=== PATIENT | female | born 1975 | race Caucasian/White ===

== ENCOUNTER 2017-07-08 13:08 | Observation (INO) ==
[2017-07-08 13:38] LABS: Hematocrit 47.6 % (37.0-47.0); Hemoglobin 15.8 g/dL (12.2-16.2); Mean Corpuscular HGB Conc 33.2 g/dL (31.8-35.4); Mean Corpuscular Hemoglobin 29.2 pg (27.0-31.2); Mean Corpuscular Volume 87.9 fl (81-99); Mean Platelet Volume 8.1 fl (7.4-10.4); Neutrophils % 78.5 % (37.0-80.0); Platelet Count 293 K/mm3 (142-424); Red Blood Count 5.41 M/mm3 (4.20-5.40); Red Cell Distribution Width 12.9 % (11.5-17.5); White Blood Count 20.7 K/mm3 (4.8-10.8)
[2017-07-08 13:39] LABS: Basophils % 0.2 % (0.1-2.0); Eosinophils # 0.1 K/mm3 (0.0-0.4); Eosinophils % 0.7 % (0.1-12.0); Lymphocytes # 3.2 K/mm3 (0.7-4.5); Lymphocytes % 15.5 K/mm3 (10-50); Monocytes # 1.1 K/mm3 (0.1-1.0); Monocytes % 5.1 % (1.7-9.3); Neutrophils # 16.2 K/mm3 (1.8-7.8)
[2017-07-08 13:44] LABS: Albumin Level 3.4 gm/dL (3.4-5.0); Albumin/Globulin Ratio 0.8 (1.1-1.8); Anion Gap 14.2 mEq/L (5-15); Bilirubin,Total 0.3 mg/dL (0.2-1.0); Calcium 9.5 mg/dL (8.5-10.1); Globulin 4.2 gm/dl (1.3-3.2); Potassium 3.2 mmoL/L (3.5-5.1); Total Protein,Serum 7.6 gm/dL (6.4-8.2)
[2017-07-08 13:54] LABS: Eosinophils % 1 % (0-3); Lymphocytes % 16 % (10-50); Monocytes % 2 % (2-9); Neutrophils % 76 % (42-76); RBC Morphology Normal; Total Cells Counted 100
--- NOTE | 2017-07-08 14:03 | Emergency Department Note ---
ED Disposition Clinical Impression: Ureteric colic, Leucocytosis Disposition: Still a Patient Condition on Discharge: Fair Referrals: Gregory Wei MD [Primary Care Provider] - - Critical Care Critical Care Time: No Attestation: On 07/08/17, the high probability of a clinically significant, sudden or life threatening deterioration of the following system(s) required my full and direct attention, intervention and personal management. The time I documented below is in addition to time spent performing reported procedures but includes the following listed in this critical care notation. Medical Decision Making - Madhu Inquiry Pt receiving controlled substance: No Madhu was queried for this patient: No Vital Signs: 07/08/17 13:14 07/08/17 14:09 Temperature 98.0 F 98.1 F Temperature Source Oral Oral Pulse Rate [Right Brachial] 88 77 Respiratory Rate 20 22 Blood Pressure [Right Arm] 157/99 155/97 Blood Pressure Mean [Right Arm] 118 116 Blood Pressure Source [Right Arm] Automatic Cuff Automatic Cuff Blood Pressure Position [Right Arm] Sitting Sitting 02 Sat by Pulse Oximetry 100 100 Oxygen Delivery Method Room Air Room Air - Lab Data Lab Results 07/08/17 13:10: WBC 20.7 H* D, RBC 5.41 H, Hgb 15.8, Hct 47.6 H, MCV 87.9, MCH 29.2, MCHC 33.2, RDW 12.9, Plt Count 293, MPV 8.1, Neut % (Auto) 78.5, Lymph % ( Auto) 15.5, [place] % (Auto) 5.1, Eos % (Auto) 0.7, Baso % (Auto) 0.2, Neut # (Auto ) 16.2 H, Lymph # (Auto) 3.2, [place] # (Auto) 1.1 H, Eos # (Auto) 0.1, Baso # ( Auto) 0.0, Total Counted 100, Neutrophils % (Manual) 76, Lymphocytes % (Manual) 16, Atypical Lymphs % 5.0, Monocytes % (Manual) 2, Eosinophils % (Manual) 1, Platelet Estimate Normal, RBC Morphology Normal 07/08/17 13:10: Sodium 142, Potassium 3.2 L, Chloride 105, Carbon Dioxide 26, Anion Gap 14.2, BUN 9, Creatinine 0.85 D, Estimated Creat Clear 104, Estimated GFR 73, Est GFR ( Amer) 89, Glucose 101, Calcium 9.5, Total Bilirubin 0.3 , AST 13 L, ALT 14, Alkaline Phosphatase 101, Total Protein 7.6, Albumin 3.4, Globulin 4.2 H, Albumin/Globulin Ratio 0.8 L 07/08/17 14:28: Lactic Acid 1.5 Result diagrams: 07/08/17 13:10 07/08/17 13:10 Orders (Tests/Meds): ED MEDICATIONS Generic Name Dose Route Start Last Admin Trade Name Freq PRN Reason Stop Dose Admin Ceftriaxone Sodium 1 gm/ 50 mls @ 100 mls/hr 07/08/17 14:30 07/08/17 14:20 Sodium Chloride IV 07/22/17 14:29 100 mls/hr Q24H HUMBERTO Administration Protocol Sodium Chloride 1,000 mls @ 999 mls/hr 07/08/17 15:30 07/08/17 15:23 Sod Chlor 0.9% 1000ml Bag IV 07/08/17 16:30 999 mls/hr .Q1H1M HUMBERTO Administration Tamsulosin HCl 0.4 mg 07/08/17 21:00 07/08/17 15:24 Flomax 0.4mg Capsule PO 08/07/17 20:59 0.4 mg HS HUMBERTO Administration Discontinued Medications Generic Name Dose Route Start Last Admin Trade Name Freq PRN Reason Stop Dose Admin Morphine Sulfate 4 mg 07/08/17 14:06 07/08/17 14:10 Morphine 4mg/Ml Syringe IV 07/08/17 14:07 4 mg ONCE ONE Administration Ondansetron HCl 4 mg 07/08/17 14:05 07/08/17 14:10 Zofran 4mg/2ml Vial IV 07/08/17 14:06 4 mg ONCE ONE Administration ORDERS Category Date Time Status Blood Culture Stat Micro 07/08/17 14:28 Received Medical Decision Narrative: After 2 bags of IV fluids and a second dose of morphine the patient underwent recurrent pain with nausea. I spoke with Dr. Zarate was pesticide control inspector for unassigned agreed to admit the patient for pain control. General Adult HPI - General Chief complaint: PAIN Stated complaint: Sugery 07/07/17 Kidney Stones Time Seen by Provider: 07/08/17 13:20 Mode of Arrival: Ambulatory Limitations: No Limitations Description of Symptoms (Recalled from ER Triage Doc. by RN): Patient had a lithotripsy yesterday [address] Freire's office. Has been increased pain and vomiting since 0200. Patient states she was urinating OK until 1000 this AM and hasn't urinated since then, but also wasn't able to keep fluids down since. - History of Present Illness HPI narrative: 41 years old white female who was diagnosed with a left ureteric stone 3 days ago she was seen by the urologist yesterday and underwent lithotripsy. At 2 PM 2 AM she developed worse pain and repeated vomiting she came to the ED. Onset (ago): hour(s) (10 hours.) Severity: severe Quality: sharp Consistency: constant Relieving factors: none Exacerbating factors: none Associated symptoms: denies other symptoms - Related Data Previous Rx's Medication Instructions Recorded Hydrocod/Acet 5/325 mg [[place] 1 tab PO Q6HP PRN #10 tab 07/05/17 5/325mg tablet] Allergies Allergy/AdvReac Type Severity Reaction Status Date / Time erythromycin base AdvReac Mild NA-NAUSEA/V Verified 07/05/17 19:13 OMITING [facility] History I have reviewed the patient's past medical history: Yes Medical History: Reports:: Hyperlipidemia Other Surgeries: Yes: Hernia Repair, Tubal Ligation Amputation: No Fractures: No Comment: oral surgery-wisdom teeth - Social History Smoking Status: Current every day smoker Tobacco Type: cigarettes # Packs/Day (cigarettes): 1 Alcohol Intake: current Alcohol Intake Frequency:: holidays/special occasions only Substance Use Type: denies use - Psychiatric History Expresses thoughts of harming self/others: None Suicide Plan Description: No Plan Family Hx:: No significant family history ROS Obtained: Yes All systems reviewed & no additional complaints Physical Exam - General General appearance: alert, in no apparent distress - Head Head exam: atraumatic, normocephalic, normal inspection - Eye Eye exam: Present: normal appearance, PERRL, EOMI - ENT ENT exam: Present: normal exam, normal oropharynx, mucous membranes moist, TM's normal bilaterally, normal external ear exam - Neck Neck exam: Present: normal inspection, full ROM, trachea midline. Absent: meningismus, lymphadenopathy - Chest Chest inspection: Present: normal inspection, symmetric chest wall rise. Absent : tenderness - Respiratory Respiratory exam: Present: normal lung sounds bilaterally. Absent: respiratory distress - Cardiovascular Cardiovascular exam: Present: regular rate, normal rhythm. Absent: JVD - Abdominal Exam Abdominal exam: Present: soft, normal bowel sounds. Absent: distention, tenderness, guarding - Extremities Exam Extremities exam: Present: normal inspection, full ROM, normal capillary refill. Absent: calf tenderness - Back Exam Back exam: Present: normal inspection, tenderness, CVA tenderness (L) - Neurological Exam Neurological exam: Present: alert, oriented X3, CN II-XII intact, motor sensory deficit, reflexes normal - Psychiatric Psychiatric exam: Present: normal affect, normal mood - Skin Skin exam: Present: warm, dry, intact, normal color - Lymphatic Lymphatic Findings: no adenopathy
[2017-07-09 07:11] LABS: Basophils % 0.4 % (0.1-2.0); Eosinophils # 0.2 K/mm3 (0.0-0.4); Hematocrit 40.2 % (37.0-47.0); Lymphocytes # 3.5 K/mm3 (0.7-4.5); Mean Corpuscular HGB Conc 32.2 g/dL (31.8-35.4); Mean Platelet Volume 8.9 fl (7.4-10.4); Monocytes # 0.5 K/mm3 (0.1-1.0); Monocytes % 5.4 % (1.7-9.3); Neutrophils # 5.4 K/mm3 (1.8-7.8); Neutrophils % 56.2 % (37.0-80.0); Platelet Count 226 K/mm3 (142-424); Red Blood Count 4.47 M/mm3 (4.20-5.40); Red Cell Distribution Width 13.2 % (11.5-17.5); White Blood Count 9.7 K/mm3 (4.8-10.8)
[2017-07-09 07:17] LABS: Anion Gap 9.2 mEq/L (5-15); Potassium 3.2 mmoL/L (3.5-5.1)
--- NOTE | 2017-07-09 08:26 | H&P/Discharge Summary ---
General - General Admission date: 07/08/17 Discharge date: 07/09/17 *Admission Date: 07/09/17 *Chief complaint: Left flank pain *History of present illness: 41-year-old female diagnosed with a 6 mm left sided kidney stone last week and underwent lithotripsy on Monday presented to the emergency department with left flank pain. Patient reports lithotripsy Monday afternoon. 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 She had pain medication at home to take but could not keep it down. Once her pain became unbearable she presented to the emergency department. Patient was medicated in the emergency department to control her pain as well as nausea. Repeat CT scan was performed which showed a 2 mm stone at the left UVJ and patient was admitted on IV fluids , morphine, Toradol, antiemetics. [facility] History I have reviewed the patient's past medical history: Yes Medical History: Reports:: Hyperlipidemia Denies:: Cancer, Diabetes Mellitus Type 1, Diabetes Mellitus Type 2, MRSA Other Surgeries: Yes: Hernia Repair, Tubal Ligation Amputation: No Fractures: No - *Social History Educational Level: Attended College Smoking Status: Current every day smoker Tobacco Type: cigarettes # Packs/Day (cigarettes): 1 Alcohol Intake: former Alcohol Intake Frequency:: holidays/special occasions only Substance Use Type: denies use Occupational Status: employed Housing: house Household Members: children - Psychiatric History Expresses thoughts of harming self/others: None Suicide Plan Description: No Plan *Family Hx:: No significant family history Review of Systems - Review of Systems Review of systems:: pertinent systems reviewed and negative unless documented below - Constitutional Denies body ache(s), Denies chills, Denies fever(s) Exam Vital signs and Labs for Last 24 Hours: Temp Pulse Resp BP Pulse Ox 97.9 F 75 16 151/98 99 07/09/17 08:16 07/09/17 08:16 07/09/17 08:16 07/09/17 08:16 07/09/17 08:16 Laboratory Results - last 24 hr 07/09/17 06:03: WBC 9.7 D, RBC 4.47, Hgb 13.0 D, Hct 40.2, MCV 90.0, MCH 29.0 , MCHC 32.2, RDW 13.2, Plt Count 226, MPV 8.9, Neut % (Auto) 56.2, Lymph % (Auto ) 36.0, [place] % (Auto) 5.4, Eos % (Auto) 2.0, Baso % (Auto) 0.4, Neut # (Auto) 5.4, Lymph # (Auto) 3.5, [place] # (Auto) 0.5, Eos # (Auto) 0.2, Baso # (Auto) 0.0 07/09/17 06:03: Sodium 143, Potassium 3.2 L, Chloride 108 H, Carbon Dioxide 29, Anion Gap 9.2, BUN 7, Creatinine 0.63 D, Estimated Creat Clear 147, Estimated GFR 104, Est GFR ( Amer) 125 D, Glucose 102 I & O for Last 24 hours: Intake & Output 07/06/17 07/07/17 07/08/17 07/09/17 11:59 11:59 11:59 11:59 Intake Total 1391 / 1391 Output Total 1400 / 1400 Balance -9 / -9 Weight 168 lb Narrative: This morning patient is awake and alert and sitting up in bed. She does not appear to be in any discomfort. Oropharynx is moist. Neck is without lymphadenopathy. Lungs are clear. Heart has a regular rate and rhythm. Back has mild discomfort with palpation but no true CVA tenderness. No palpable flank tenderness. Active range of motion in all extremities. Hospital Course Hospital Course: Patient was admitted. She had no further vomiting. She was medicated with intravenous pain medications. The following morning she was transitioned to oral pain medications and antiemetics. Patient was given scheduled pain medication to keep pain under control. Diet was advanced. When she tolerated her diet she was discharged home with additional prescription for oral pain medication and antiemetics. She will follow-up with her urologist later this week Results Labs on day of discharge: Labs from last 24 hours 07/09/17 07/09/17 06:03 06:03 WBC 9.7 D RBC 4.47 Hgb 13.0 D Hct 40.2 MCV 90.0 MCH 29.0 MCHC 32.2 RDW 13.2 Plt Count 226 MPV 8.9 Neut % (Auto) 56.2 Lymph % (Auto) 36.0 [place] % (Auto) 5.4 Eos % (Auto) 2.0 Baso % (Auto) 0.4 Neut # (Auto) 5.4 Lymph # (Auto) 3.5 [place] # (Auto) 0.5 Eos # (Auto) 0.2 Baso # (Auto) 0.0 Sodium 143 Potassium 3.2 L Chloride 108 H Carbon Dioxide 29 Anion Gap 9.2 BUN 7 Creatinine 0.63 D Estimated Creat Clear 147 Estimated GFR 104 Est GFR ( Amer) 125 D Glucose 102 DS: Diagnosis - Discharge Diagnosis (1) Ureteric colic Status: Acute Disposition Disposition: Home, Self-Care
--- NOTE | 2017-07-09 10:05 | Pharmacy Consult Notes ---
[facility] Pharmacy VTE Monitoring - Patient Demographics Admission date: 07/08/17 Report Date: 07/09/17 Time: 10:05 Allergies/Adverse Reactions: Patient Allergies erythromycin base Adverse Reaction (Mild, Verified 07/05/17 19:13) NA-NAUSEA/VOMITING Height: 1.6 m Weight: 80 kg Patient Problems: Current Active Problems Ureteric colic (Acute) Leucocytosis (Acute) - VTE Risk Labs: VTE Related Lab Results Hgb 13.0 g/dL (12.2-16.2) D 07/09/17 06:03 Hct 40.2 % (37.0-47.0) 07/09/17 06:03 Plt Count 226 K/mm3 (142-424) 07/09/17 06:03 BUN 7 mg/dL (7-18) 07/09/17 06:03 Creatinine 0.63 mg/dL (0.55-1.02) D 07/09/17 06:03 Estimated Creat Clear 147 mL/min (0-300) 07/09/17 06:03 Was VTE Risk Assessment Performed: Yes VTE Score: 2 VTE Risk Level: Very Low Risk - Prophylaxis VTE Prophylaxis Ordered?: Yes Types of VTE Prophylaxis: TEDS Knee High Location of Applied Device: Bilateral Lower Extremeties - VTE Diagnosis Confirmed Treatment or plan recommended: Continue Current Treatment
== END 2017-07-09 14:59 | disposition home or self-care (01) ==
LOC: 2ND 13:08 → ER 13:08 → 2ND 17:12
PROVIDERS: ADMIT Family Medicine; ATTEND Family Medicine

== ENCOUNTER → 2017-07-13 13:35 | Outpatient (CLI) | payer BC, SELFPAY ==
--- NOTE | 2017-07-13 13:42 | XR_ITS ---
XR KUB HISTORY: ITS.REASON: LT URETERAL STONE ORDERING PHYSICIAN: Judson Freire MD PATIENT AGE: 41 years COMPARISON: FINDINGS: The bowel gas pattern is unremarkable. No acute bony anomalies evident. Vein calcifications are present in the lower pelvis. The stone noted on the CT scan was very small and could be represented by one of these calcifications on the left. They could also be due to small phlebolith. Please correlate with patient's symptoms. A 3 mm stone is noted along the lower pole the right kidney. Abdominal wall tacks are present IMPRESSION: 1. Right nephrolithiasis. 2. Faint pelvic calcifications which are nonspecific. Cannot exclude a tiny distal ureteral calculus on the left
== END ==
PROVIDERS: Visit Provider Urology
DX: N20.0 Calculus of kidney (principal)
CPT/HCPCS: 74018

== ENCOUNTER → 2018-12-06 09:36 | Outpatient (CLI) | payer BC, SELFPAY ==
[2018-12-06 11:29] LABS: Thyroid Stimulating Hormone 3.55 uIU/ml (0.358-3.740)
== END ==
PROVIDERS: Visit Provider Internal Medicine Adolescent Medicine
DX: E03.9 Hypothyroidism, unspecified (principal)
CPT/HCPCS: 36415; 84443

== ENCOUNTER → 2019-12-05 09:47 | Outpatient (CLI) | payer BC, SELFPAY ==
--- NOTE | 2019-12-05 09:52 | MM_ITS ---
PROCEDURE: MM DIG SCREENING MAMM BI W/CAD Digital Breast Tomosynthesis Included CLINICAL INDICATION: SCREENING There is a history of breast cancer patient's maternal great grandmother and maternal grandmother and maternal aunt all diagnosed after menopause. COMPARISON: MG DMSB DIG MAMM-SCREEN SOFIA from 12/22/2014 MG DMDXUAVL DIG MAMM-DX UNI ADD VIEWS-LT from 01/01/2015 TECHNIQUE: Standard CC and MLO images and 3D Tomosynthesis was obtained. R2 CAD reviewed. FINDINGS: Moderate scattered fibroglandular densities are seen the central portions of both breasts. There is a benign-appearing calcification left breast. There are normal appearing nodes in both axilla. There is no suspicious lesion and no suspicious microcalcifications. IMPRESSION: Fibrofatty parenchyma with no suspicious lesions seen BI-RAD Category: 2 Benign Finding(s) FOLLOW-UP: 1YR 1 Year Follow-up (A letter has been sent to the patient regarding results of the study.) Dictated by: Dr. Chon Renteria MD 12/08/2019 13:23 Dr. Chon Renteria MD in [place] 12/08/2019 13:23
[2019-12-05 10:42] LABS: Basophils # 0.1 K/mm3 (0-0.2); Basophils % 0.7 % (0.1-2.0); Eosinophils # 0.2 K/mm3 (0.0-0.4); Eosinophils % 1.7 % (0.1-12.0); Hematocrit 47.4 % (37.0-47.0); Hemoglobin 16.4 g/dL (12.2-16.2); Lymphocytes # 3.1 K/mm3 (0.7-4.5); Lymphocytes % 30.2 % (10-50); Mean Corpuscular HGB Conc 34.6 g/dL (31.8-35.4); Mean Corpuscular Hemoglobin 30.6 pg (27.0-31.2); Mean Corpuscular Volume 88.5 fl (81-99); Mean Platelet Volume 7.9 fl (7.4-10.4); Monocytes # 0.3 K/mm3 (0.1-1.0); Monocytes % 3.2 % (1.7-9.3); Neutrophils # 6.6 K/mm3 (1.8-7.8); Neutrophils % 64.2 % (37.0-80.0); Platelet Count 282 K/mm3 (142-424); Red Blood Count 5.35 M/mm3 (4.20-5.40); Red Cell Distribution Width 13.6 % (11.5-17.5); White Blood Count 10.3 K/mm3 (4.8-10.8)
[2019-12-05 11:03] LABS: Chloride 105 mmol/L (98-107); Potassium 3.2 mmoL/L (3.5-5.1); Sodium 142 mmol/L (136-145)
[2019-12-05 11:06] LABS: Alanine Aminotransferase 15 U/L (12-78); Albumin Level 3.8 g/dl (3.5-5.0); Albumin/Globulin Ratio 1.2 (1.1-1.8); Alkaline Phosphatase 92 U/L (38-126); Anion Gap 9.2 mEq/L (5-15); Aspartate Amino Transferase 21 U/L (14-36); Bilirubin,Total 0.4 mg/dl (0.2-1.3); Blood Urea Nitrogen 11 mg/dl (7-17); Carbon Dioxide 31 mmol/L (22.0-30.0); Cholesterol 244 mg/dl (140-200); Estimated Glomerular Filt Rate 108 ml/min (>60); GFR (African American) 131 ML/MIN (>60); Globulin 3.2 g/dL (1.3-3.2); Triglycerides 242 mg/dl (30-150); VLDL Cholesterol 48 mg/dL (0-40)
[2019-12-05 11:07] LABS: Calcium 9.2 mg/dl (8.4-10.2); Chol/HDL Ratio 5.4 (1-3.5); Glucose 113 mg/dl (74-100); HDL Cholesterol 45 mg/dl (40-60)
[2019-12-05 11:17] LABS: Direct LDL Cholesterol 147.17 mg/dL (100-129)
[2019-12-05 11:38] LABS: Thyroid Stimulating Hormone 4.19 uIU/mL (0.465-4.68)
== END ==
PROVIDERS: PCP Internal Medicine Adolescent Medicine; Visit Provider Nurse Practitioner Family
DX: Z12.31 Encounter for screening mammogram for malignant neoplasm of breast (principal); I10 Essential (primary) hypertension; E78.00 Pure hypercholesterolemia, unspecified; E03.9 Hypothyroidism, unspecified; K11.20 Sialoadenitis, unspecified
CPT/HCPCS: 36415; 77063; 77067; 80053; 80061; 84443; 85025

== ENCOUNTER → 2020-01-13 11:26 | Outpatient (CLI) | payer BC, SELFPAY ==
--- NOTE | 2020-01-13 11:31 | XR_ITS ---
PROCEDURE: XR KNEE RT 3V CLINICAL INDICATION: ACUTE PAIN OF RT KNEE COMPARISON: No exams were available for comparison FINDINGS: No fracture or dislocation. No lytic or blastic change. There is normal mineralization. The joint spaces are well-preserved. No significant degenerative/arthritic changes. No erosive changes evident. Other findings:None. IMPRESSION: No acute findings. Dictated by: Dr. Chon Renteria MD 01/13/2020 12:13 Dr. Chon Renteria MD in [place] 01/13/2020 12:13
== END ==
PROVIDERS: PCP Nurse Practitioner Family; Visit Provider Nurse Practitioner Family
DX: M25.561 Pain in right knee (principal)
CPT/HCPCS: 73562

== ENCOUNTER 2020-04-13 14:04 | Emergency (ER) | payer BC, SELFPAY ==
[2020-04-13 14:15] VITALS: BP 152/97; PULSE 116; RESP 22; TEMP 36.9; O2SAT 96; BMI 32.5
--- NOTE | 2020-04-13 14:33 | HMH.EDUTC ---
[facility] [place] Disposition Clinical Impression: Viral syndrome Disposition: Home, Self-Care Condition on Discharge: Good Instructions: Sore Throat, DI for COVID-19 (Suspected or Confirmed ), Coronavirus Disease 2019, DI for Fever (Symptom) -- Adult Additional Instructions: *Monitor Temp, Over the counter Motrin or Tylenol as directed/as needed Tylenol every 4 hours and Motrin every 6 hours (as long as your family doctor has told you that you can take it) for fever or pain. and straight to ER if unable to lower temp less than 101.0 after medication given *Warm salt water gargles may help to soothe the throat *Throat Lozenges *Warm fluids like tea with honey may help to soothe the throat *Sleep elevated *Humidifier/Vaporizer Your throat swab was sent for culture. Those results are typically sent to your primary care. Be sure to follow up in 2-3 days with your family doctor/primary care physician if no improvement so they can review those result and treat if necessary. If you don?t have a primary care doctor, I recommend you get one but in the mean time, you will have to return to a walk in clinic Follow up IMMEDIATELY for new or worsening symptoms or no Noticeable improvement over the next 48-72 hours. 911 for difficulty breathing or swallowing You were tested for today for COVID19 your test result should be back in the next 24-48 hours, you may call to the [facility] to see if your test results are back in the next 48 hours [phone] [facility] hours are 9am-9pm You was given a handout with instructions for Self Quarantine and Self isolation for while you wait on test results and what to do if they are positive If you are positive the Health Dept will be contacting you also Referrals: Mckinley Guardado MD [Primary Care Provider] - As needed Forms: Work/School Release Time of Disposition: 14:36 Medical Decision Making - Madhu Inquiry Pt receiving controlled substance: No Madhu was queried for this patient: No Vital Signs: 04/13/20 14:15 Temperature 98.4 F Temperature Source Oral Pulse Rate [Right Brachial] 116 H Respiratory Rate 22 Blood Pressure [Right Arm] 152/97 H Blood Pressure Mean [Right Arm] 115 Blood Pressure Source [Right Arm] Automatic Cuff Blood Pressure Position [Right Arm] Sitting 02 Sat by Pulse Oximetry 96 Oxygen Delivery Method Room Air - Lab Data Lab results reviewed: Yes: I reviewed the patient's lab results. Orders (Tests/Meds): ORDERS Category Date Time Status Covid-19 Nasal PCR Sendout P&C Stat Lab 04/13/20 14:32 Ordered [facility] [place] HPI - General Stated complaint: covid test Time Seen by Provider: 04/13/20 14:33 Mode of Arrival: Ambulatory Source of Information: Patient Limitations: No Limitations Description of Symptoms (Recalled from Triage Doc. by RN): PATEINT C/O HEADACHE, CONGESTION, FEVER, SORE THROAT, AND BODY ACHES SINCE THIS MORNING. NEEDS COVID TEST FOR WORK HEENT Symptoms (Recalled from RN notes): Yes Resp Symptoms (Recalled from RN notes): No Skin Symptoms (Recalled from RN notes): No MS Symptoms (Recalled from RN notes): No Functional Status (Recalled from RN notes): WNL - History of Present Illness Provider Complaint: Patient state that she woke up this morning not feeling well States that she was having sore throat, body aches, chills and fever States that her work sent her home and told her that she has to be tested for COVID before she can return so she came in - Related Data Home Medications Medication Instructions Recorded Confirmed amlodipine 5 mg tablet 5 mg PO DAILY 01/07/19 01/07/19 hydrochlorothiazide 25 mg tablet 25 mg PO DAILY 01/07/19 01/07/19 levothyroxine 75 mcg tablet 75 mcg PO DAILY 01/07/19 01/07/19 Previous Rx's Medication Instructions Recorded Amoxicillin [Amoxicillin 500mg 500 mg PO TID #30 cap 06/12/19 Cap] Fluticasone Propionate [Flonase 1 spr NS DAILY #1 bottle 06/12/19 50mcg nasal spray 16gm] Allergies Allergy/AdvReac Type Se
[2020-04-13 14:35] LABS: UTC Strep Screen (Rapid) Negative (Negative)
[2020-04-13 14:36] LABS: UTC Influenza A Antigen Negative (Negative); UTC Influenza B Antigen Negative (Negative)
[2020-04-13 14:37] VITALS: BP 152/97; PULSE 116; RESP 22; TEMP 36.9; O2SAT 96
[2020-04-15 08:37] LABS: Covid-19 Nasal PCR Sendout P&C NEGATIVE
== END 2020-04-13 14:40 | disposition home or self-care (01) ==
PROVIDERS: Emergency Provider Nurse Practitioner; PCP Internal Medicine Adolescent Medicine
DX: Z20.822 Contact with and (suspected) exposure to COVID-19 (principal); B34.9 Viral infection, unspecified; I10 Essential (primary) hypertension; E03.9 Hypothyroidism, unspecified; E75.5 Other lipid storage disorders; F17.210 Nicotine dependence, cigarettes, uncomplicated
CPT/HCPCS: 87804; 87880; 99202; G0463; U0004

== ENCOUNTER → 2020-05-28 08:19 | Outpatient (CLI) | payer BC, SELFPAY ==
[2020-05-28 09:24] LABS: Basophils # 0.1 K/mm3 (0-0.2); Basophils % 0.6 % (0.1-2.0); Eosinophils # 0.1 K/mm3 (0.0-0.4); Eosinophils % 1.4 % (0.1-12.0); Hematocrit 46.6 % (37.0-47.0); Hemoglobin 15.2 g/dL (12.2-16.2); Lymphocytes # 3.5 K/mm3 (0.7-4.5); Lymphocytes % 35.4 % (10-50); Mean Corpuscular HGB Conc 32.6 g/dL (31.8-35.4); Mean Corpuscular Hemoglobin 28.7 pg (27.0-31.2); Mean Platelet Volume 7.7 fl (7.4-10.4); Monocytes # 0.4 K/mm3 (0.1-1.0); Neutrophils # 5.8 K/mm3 (1.8-7.8); Neutrophils % 58.6 % (37.0-80.0); Platelet Count 287 K/mm3 (142-424); Red Blood Count 5.29 M/mm3 (4.20-5.40); Red Cell Distribution Width 14.1 % (11.5-17.5); White Blood Count 9.9 K/mm3 (4.8-10.8)
[2020-05-28 10:09] LABS: Alanine Aminotransferase 12 U/L (12-78); Albumin Level 4.1 g/dl (3.5-5.0); Albumin/Globulin Ratio 1.2 (1.1-1.8); Alkaline Phosphatase 91 U/L (38-126); Aspartate Amino Transferase 22 U/L (14-36); Bilirubin,Total 0.4 mg/dl (0.2-1.3); Blood Urea Nitrogen 13 mg/dl (7-17); Calcium 9.5 mg/dl (8.4-10.2); Carbon Dioxide 30 mmol/L (22.0-30.0); Chloride 105 mmol/L (98-107); Chol/HDL Ratio 6.1 (1-3.5); Cholesterol 289 mg/dl (140-200); Estimated Glomerular Filt Rate 108 ml/min (>60); GFR (African American) 131 ML/MIN (>60); Globulin 3.3 g/dL (1.3-3.2); Glucose 110 mg/dl (74-100); HDL Cholesterol 47 mg/dl (40-60); Sodium 142 mmol/L (136-145); Total Protein,Serum 7.4 g/dl (6.3-8.2); Triglycerides 198 mg/dl (30-150); VLDL Cholesterol 40 mg/dL (0-40)
[2020-05-28 10:20] LABS: Direct LDL Cholesterol 194.71 mg/dL (100-129)
[2020-05-28 10:39] LABS: Thyroid Stimulating Hormone 5.05 uIU/mL (0.465-4.68)
[2020-05-28 11:08] LABS: Hemoglobin A1C 6.1 % (4.0-6.0)
== END ==
PROVIDERS: Visit Provider Nurse Practitioner Family
DX: E78.00 Pure hypercholesterolemia, unspecified (principal); E03.9 Hypothyroidism, unspecified; I10 Essential (primary) hypertension; R73.9 Hyperglycemia, unspecified; F17.200 Nicotine dependence, unspecified, uncomplicated
CPT/HCPCS: 36415; 80053; 80061; 83036; 84443; 85025

== ENCOUNTER → 2020-12-10 09:03 | Outpatient (CLI) | payer BC, SELFPAY ==
[2020-12-10 09:43] LABS: Chloride 104 mmol/L (98-107)
[2020-12-10 09:44] LABS: Potassium 3.8 mmoL/L (3.5-5.1); Sodium 142 mmol/L (136-145)
[2020-12-10 09:46] LABS: Alanine Aminotransferase 20 U/L (12-78); Albumin Level 3.9 g/dl (3.5-5.0); Albumin/Globulin Ratio 1.3 (1.1-1.8); Alkaline Phosphatase 117 U/L (38-126); Anion Gap 12.8 mEq/L (5-15); Aspartate Amino Transferase 24 U/L (14-36); Bilirubin,Total 0.3 mg/dl (0.2-1.3); Blood Urea Nitrogen 9 mg/dl (7-17); Carbon Dioxide 29 mmol/L (22.0-30.0); Estimated Glomerular Filt Rate 90 ml/min (>60); GFR (African American) 109 ML/MIN (>60); Total Protein,Serum 6.9 g/dl (6.3-8.2)
[2020-12-10 09:47] LABS: Calcium 9.3 mg/dl (8.4-10.2); Chol/HDL Ratio 4.1 (1-3.5); Cholesterol 186 mg/dl (140-200); Glucose 115 mg/dl (74-100); HDL Cholesterol 45 mg/dl (40-60); Triglycerides 171 mg/dl (30-150); VLDL Cholesterol 34 mg/dL (0-40)
[2020-12-10 09:58] LABS: Direct LDL Cholesterol 107.34 mg/dL (100-129)
[2020-12-10 10:17] LABS: Thyroid Stimulating Hormone 4.35 uIU/mL (0.465-4.68)
== END ==
PROVIDERS: Visit Provider Nurse Practitioner Family
DX: I10 Essential (primary) hypertension (principal); E78.00 Pure hypercholesterolemia, unspecified; E03.9 Hypothyroidism, unspecified
CPT/HCPCS: 36415; 80053; 80061; 84443

== ENCOUNTER → 2021-01-07 10:30 | Outpatient (CLI) | payer BC, SELFPAY ==
--- NOTE | 2021-01-07 10:34 | XR_ITS ---
PROCEDURE: XR SHOULDER RT MIN 2V CLINICAL INDICATION: PAIN IN RT SHOULDER, OTHER CHRONIC PAIN COMPARISON: No exams were available for comparison FINDINGS: No fracture or dislocation. No lytic or blastic change. There is normal mineralization. The joint spaces are well-preserved. No significant degenerative/arthritic changes. No erosive changes evident. Other findings:There is a small area cortical lucency along the greater tuberosity. This is nonspecific. IMPRESSION: Minimal cortical lucency of the greater tuberosity nonspecific but could be related underlying inflammatory changes. Otherwise negative. Dictated by: Efraín Hendrickson MD 01/07/2021 14:08 Efraín Hendrickson MD in [place] 01/07/2021 14:08
== END ==
PROVIDERS: PCP Nurse Practitioner Family; Visit Provider Nurse Practitioner Family
DX: M25.511 Pain in right shoulder (principal); G89.29 Other chronic pain
CPT/HCPCS: 73030

== ENCOUNTER 2021-01-14 07:56 | Outpatient (RCR) | payer BC, SELFPAY ==
--- NOTE | 2021-01-14 08:41 | HMH.OTOPEV ---
OT Inpatient Evaluation Rehab OT Outpatient Eval Start: 01/14/21 08:30 Freq: Status: Active Protocol: Document 01/14/21 08:30 RMSADE (Rec: 01/14/21 08:41 RMSADE [id number]) Electronically Signed By Sadi Liu OT 01/14/21 08:30 Outpatient Therapy Subjective History Subjective History Pt is a 45 year old female who reports to therapy for initial evaluation to right shoulder. Pt's right shoulder began hurting her ~1 year ago, but her pain was not constant. However, within the past month her pain has intensified and become constant. 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 She has been off work for a week, but returns today. At this time she is extremely tender to touch at supraspinatus and long head of the bicep. Pt did test positive on certain shoulder impingement special tests at right shoulder. Pt's AROM is very limited due to pain as well. Pt will continue to be seen in order to address all deficits. Chief Complaint Pain,Stiff,Weakness Symptom Type Ache,Throb,Sharp,Dull Symptoms Relieved By Nothing Symptoms Aggravated By Physical Activity,Lifting Prior Functional Limitations None Current Functional Limitations Reaching,Lifting,Housework, Sleeping,Recreation Activity Symptom Description Constant but Variable Level of pain today (0-10) 3 Pain scale - at its best (0-10) 2 Pain scale - at its worst (0-10) 8 Shoulder/Elbow Eval Shoulder Objective Measurements Shoulder ROM Right Shoulder Abduction Active Range of 80 degrees Motion (degrees) Shoulder Flexion Active Range of Motion 100 degrees (degrees) Query Text: Shoulder External Rotation Active Range 75 degrees of Motion (degrees) Shoulder Internal Rotation Active Range 30 degrees of Motion (degrees) pain with active ROM shoulder exam right standard pain
== END 2021-01-14 07:59 | disposition home or self-care (01) ==
LOC: OT 07:56
PROVIDERS: PCP Nurse Practitioner Family; Visit Provider Nurse Practitioner Family
DX: M25.511 Pain in right shoulder (principal)
CPT/HCPCS: 97166

== ENCOUNTER 2021-03-31 16:10 | Observation (INO) | payer BC, SELFPAY ==
--- NOTE | 2021-03-31 16:26 | CT_ITS ---
PROCEDURE INFORMATION: Exam: CT Pelvis With Contrast Exam date and time: 03/31/2021 4:26 PM Age: 45 years old Clinical indication: Other: Abscess TECHNIQUE: Imaging protocol: Computed tomography images of the pelvis with intravenous contrast. Radiation optimization: All CT scans at this facility use at least one of these dose optimization techniques: automated exposure control; mA and/or kV adjustment per patient size (includes targeted exams where dose is matched to clinical indication); or iterative reconstruction. Contrast material: ISOVUE; Contrast volume: 60 ml; Contrast route: IV; COMPARISON: ABDPELWO CT abdomen pelvis wo con 07/08/2017 2:43 PM FINDINGS: Tubes, catheters and devices: Partially visualized ventral abdominal wall repair with mesh placement. No complications. Stomach and bowel: No bowel wall thickening, obstruction, or other acute pathology. Diffuse colonic diverticulosis is present. There is mildly excessive colonic stool content. Appendix: A normal appendix is identified. Intraperitoneal space: Unremarkable. No free air. No significant fluid collection. Vasculature: The vasculature demonstrates diffuse mild atherosclerotic calcification. Lymph nodes: Prominent left inguinal and left external iliac chain lymph nodes. No other concerning pelvic adenopathy is appreciated. Urinary bladder: Normal. No mass. Reproductive: 2.1 cm cyst in the left adnexa. No further imaging is recommended. (Reference: James). The reproductive organs are otherwise unremarkable. Bones/joints: No acute skeletal abnormality or aggressive osseous lesion. Soft tissues: 1.2 cm x 1.9 cm x 1.5 cm subcutaneous rim enhancing fluid collection in the left inguinal fold (image 65 series 3 and image 30 series 601). Diffuse subcutaneous fat stranding and swelling throughout the left inguinal region and left upper thigh. IMPRESSION: 1. 1.2 cm x 1.9 cm x 1.5 cm subcutaneous abscess in the left inguinal fold. 2. Cellulitis/edema throughout the left inguinal region and left upper thigh. 3. Reactive left inguinal and left external iliac chain adenopathy. REFERENCES: James et al. Management of Incidental Adnexal Findings on CT and MRI: A White Paper of the ACR Incidental Findings Committee, J Am Ori Radiol. 2019;17(2):248-254.
--- NOTE | 2021-03-31 16:26 | CT_ITS ---
PROCEDURE INFORMATION: Exam: CT Left Lower Extremity With Contrast, Hip Exam date and time: 03/31/2021 4:26 PM Age: 45 years old Clinical indication: Other: Abcess; Additional info: Abscess left groin TECHNIQUE: Imaging protocol: CT of the Left lower extremity with intravenous contrast was performed. Exam focused on the hip. Radiation optimization: All CT scans at this facility use at least one of these dose optimization techniques: automated exposure control; mA and/or kV adjustment per patient size (includes targeted exams where dose is matched to clinical indication); or iterative reconstruction. Contrast material: ISOVUE; Contrast volume: 60 ml; Contrast route: IV; COMPARISON: CA VENOUS DOPPLER LE LT 03/31/2021 5:03 PM FINDINGS: Tubes, catheters and devices: Partially visualized ventral abdominal wall repair with mesh placement. No complications. Bones/joints: No acute skeletal abnormality or aggressive osseous lesion. Soft tissues: 1.2 cm x 1.9 cm x 1.5 cm subcutaneous rim enhancing fluid collection in the left inguinal fold (image 65 series 3 and image 30 series 601). Diffuse subcutaneous fat stranding and swelling throughout the left inguinal region and left upper thigh. Vasculature: The vasculature demonstrates diffuse mild atherosclerotic calcification. Lymph nodes: Prominent left inguinal and left external iliac chain lymph nodes. No other concerning pelvic adenopathy is appreciated. Bowel: Stomach and bowel: No bowel wall thickening, obstruction, or other acute pathology. Diffuse colonic diverticulosis is present. There is mildly excessive colonic stool content. Intraperitoneal space: Unremarkable. No free air. No significant fluid collection. Urinary bladder: Normal. No mass. Reproductive: 2.1 cm cyst in the left adnexa. No further imaging is recommended. (Reference: Ramirez). The reproductive organs are otherwise unremarkable. IMPRESSION: 1. Redemonstration of a 1.2 cm x 1.9 cm x 1.5 cm subcutaneous abscess in the left inguinal fold. 2. Redemonstration of cellulitis/edema throughout the left inguinal region and left upper thigh. 3. Reactive left inguinal and left external iliac chain adenopathy.
[2021-03-31 16:39] VITALS: BMI 34.1
[2021-03-31 16:40] VITALS: BP 121/75; PULSE 118; RESP 17; TEMP 36.8; O2SAT 96
[2021-03-31 16:55] VITALS: O2SAT 98
[2021-03-31 17:44] LABS: Basophils # 0.1 K/mm3 (0-0.2); Basophils % 1.1 % (0.1-2.0); Eosinophils # 0.1 K/mm3 (0.0-0.4); Eosinophils % 1.4 % (0.1-12.0); Hematocrit 45.5 % (37.0-47.0); Hemoglobin 15.3 g/dL (12.2-16.2); Lymphocytes # 0.4 K/mm3 (0.7-4.5); Lymphocytes % 5.2 % (10-50); Mean Corpuscular HGB Conc 33.7 g/dL (31.8-35.4); Mean Corpuscular Hemoglobin 29.7 pg (27.0-31.2); Mean Corpuscular Volume 88.3 fl (81-99); Mean Platelet Volume 8.9 fl (7.4-10.4); Monocytes # 0.4 K/mm3 (0.1-1.0); Monocytes % 4.6 % (1.7-9.3); Neutrophils # 6.6 K/mm3 (1.8-7.8); Neutrophils % 87.7 % (37.0-80.0); Platelet Count 286 K/mm3 (142-424); Red Blood Count 5.15 M/mm3 (4.20-5.40); Red Cell Distribution Width 13.5 % (11.5-17.5); White Blood Count 7.5 K/mm3 (4.8-10.8)
[2021-03-31 17:48] LABS: Chloride 99 mmol/L (98-107); Sodium 137 mmol/L (136-145)
[2021-03-31 17:51] LABS: Alanine Aminotransferase 33 U/L (12-78); Albumin/Globulin Ratio 1.2 (1.1-1.8); Alkaline Phosphatase 137 U/L (38-126); Anion Gap 10.5 mEq/L (5-15); Aspartate Amino Transferase 38 U/L (14-36); Bilirubin,Total 0.3 mg/dl (0.2-1.3); Blood Urea Nitrogen 5 mg/dl (7-17); Carbon Dioxide 30 mmol/L (22.0-30.0); Creatinine Clearance Estimated 139 mL/min (50-200); Estimated Glomerular Filt Rate 90 ml/min (>60); GFR (African American) 109 ML/MIN (>60); Globulin 3.3 g/dL (1.3-3.2); Total Protein,Serum 7.3 g/dl (6.3-8.2)
[2021-03-31 17:52] LABS: Calcium 9.4 mg/dl (8.4-10.2); Glucose 94 mg/dl (74-100); Lactic Acid 1.5 mmol/L (0.7-2.1); MANUAL DIFFERENTIAL MANUAL DIFFERENTIAL (MANUAL DIFF)
[2021-03-31 17:57] LABS: C-Reactive Protein 62.8 mg/L (0-4)
[2021-03-31 18:04] LABS: Blood Urea Nitrogen 5 mg/dl (7-17); Creatinine Clearance Estimated 139 mL/min (50-200); Estimated Glomerular Filt Rate 90 ml/min (>60); GFR (African American) 109 ML/MIN (>60)
[2021-03-31 18:19] LABS: Potassium 2.5 mmoL/L (3.5-5.1)
[2021-03-31 18:24] LABS: Erythrocyte Sedimentation Rate 27 mm/hr (0-20)
[2021-03-31 19:44] LABS: Eosinophils % 1 % (0-3); Lymphocytes % 7 % (10-50); Monocytes % 4 % (2-9); Neutrophils % 88 % (42-76); Platelet Estimate Normal; RBC Morphology Normal; Total Cells Counted 100
[2021-03-31 20:00] VITALS: BP 101/57; PULSE 115; RESP 18; TEMP 39.2; O2SAT 90
--- NOTE | 2021-03-31 20:23 | HMH.HP ---
*Admission Date: 03/31/21 *Chief complaint: abscess and fever *History of present illness: 45 year old female with history of tobacco use, hypertension and prediabetes presented to outpatient clinic today with reports of abscess in the left inguinal region. First noted this about 6 days ago, seemed insignificant but within 72 hours became very painful and she developed fevers up to 102F. Yesterday she developed spontaneous drainage and had gotten some relief from discomfort but today woke with significant increase in pain, erythema, fever again to 102F, nausea, vomiting and diarrhea. She denies history of known MRSA but does get boils occasionally. In our office she was noted to be febrile, mildly tachycardic, uncomfortable and to have significant induration and erythema surrounding left inguinal abscess and she was admitted for imaging, IV antibiotics and surgical consultation. [facility] History I have reviewed the patient's past medical history: Yes Medical History: Reports:: Hyperlipidemia, Hypertension Denies:: Cancer, Diabetes Mellitus Type 1, Diabetes Mellitus Type 2, MRSA *Have you ever received a pneumonia vaccine?: No *Have you received a flu vaccine this season?: No Other Medical History: Reports: Thyroid Disease, Other (pre-diabetes) Other Surgeries: Yes: Hernia Repair, Tubal Ligation Amputation: No Fractures: No - *Social History Last grade of school completed: High school graduate Smoking Status: Current every day smoker Tobacco Type: cigarettes # Packs/Day (cigarettes): 1 Alcohol Intake: never Alcohol Intake Frequency:: holidays/special occasions only Substance Use Type: denies use *Occupational Status:: employed Housing: house Household Members: spouse *Travel in the last 8 weeks: None Family Hx:: Diabetes, Hypertension Review of Systems - Review of Systems Review of systems:: pertinent systems reviewed and negative unless documented below - Constitutional Reports chills, Reports fever(s), Reports headache(s) - *Cardiovascular Reports leg swelling - *Gastrointestinal Reports loose stools, Reports vomiting, Denies abdominal pain - *Musculoskeletal Reports back pain, Reports body aches - Integumentary/Breasts Reports redness, Reports boil - *Neurologic Reports headache(s) Meds Home Medications Medication Instructions Recorded Confirmed Type amlodipine 5 mg tablet 5 mg PO DAILY 01/07/19 03/31/21 History hydrochlorothiazide 25 mg tablet 25 mg PO DAILY 01/07/19 03/31/21 History levothyroxine 75 mcg tablet 75 mcg PO DAILY 01/07/19 03/31/21 History Amoxicillin [Amoxicillin 500mg 500 mg PO TID 03/31/21 03/31/21 History Cap] Atorvastatin Calcium [Lipitor 40mg 40 mg PO HS 03/31/21 03/31/21 History Tab] Fluticasone Propionate [Flonase 1 spr NS DAILY 03/31/21 03/31/21 History 50mcg nasal spray 16gm] Meloxicam 15 mg PO DAILY 03/31/21 03/31/21 History Allergies Allergy/AdvReac Type Severity Reaction Status Date / Time erythromycin base AdvReac Mild NA-NAUSEA/V Verified 01/07/19 18:50 OMITING Exam Vital signs and Labs for Last 24 Hours: Temp Pulse Resp BP Pulse Ox 102.5 F H 115 H 18 101/57 L 90 L 03/31/21 20:00 03/31/21 20:00 03/31/21 20:00 03/31/21 20:00 03/31/21 20:00 Laboratory Results - last 24 hr 03/31/21 17:27: WBC 7.5, RBC 5.15, Hgb 15.3, Hct 45.5, MCV 88.3, MCH 29.7, MCHC 33.7, RDW 13.5, Plt Count 286, MPV 8.9, Neut % (Auto) 87.7 H, Lymph % (Auto) 5.2 L, [place] % (Auto) 4.6, Eos % (Auto) 1.4, Baso % (Auto) 1.1, Neut # (Auto) 6.6, Lymph # (Auto) 0.4 L, [place] # (Auto) 0.4, Eos # (Auto) 0.1, Baso # (Auto) 0.1, Total Counted 100, Neutrophils % (Manual) 88 H, Lymphocytes % (Manual) 7 L, Monocytes % (Manual) 4, Eosinophils % (Manual) 1, Platelet Estimate Normal, RBC Morphology Normal 03/31/21 17:27: Sodium 137, Potassium 2.5 L*, Chloride 99, Carbon Dioxide 30, Anion Gap 10.5, BUN 5 L, Creatinine 0.70, Estimated Creat Clear 139, Estimated GFR 90, Est GFR ( A
[2021-04-01] VITALS (17 sets, daily range): BP systolic 89–115; BP diastolic 51–68; PULSE 79–96; RESP 14–20; TEMP 36.6–37.7; O2SAT 90–98; BMI 34.7
--- NOTE | 2021-04-01 06:31 | HMH.GSCON ---
*Admission Date: 03/31/21 *Reason for consult:: Left groin abscess *History of present illness: This is a 45-year-old female seen in consultation from Dr. Evangelista for evaluation regarding a left groin abscess. Please see HPI from admission H&P forwarded below. Forwarded from admission H&P: 45 year old female with history of tobacco use, hypertension and prediabetes presented to outpatient clinic today with reports of abscess in the left inguinal region. First noted this about 6 days ago, seemed insignificant but within 72 hours became very painful and she developed fevers up to 102F. Yesterday she developed spontaneous drainage and had gotten some relief from discomfort but today woke with significant increase in pain, erythema, fever again to 102F, nausea, vomiting and diarrhea. She denies history of known MRSA but does get boils occasionally. In our office she was noted to be febrile, mildly tachycardic, uncomfortable and to have significant induration and erythema surrounding left inguinal abscess and she was admitted for imaging, IV antibiotics and surgical consultation. Review of Systems - Constitutional Denies chills - *Respiratory Denies cough - *Gastrointestinal Denies abdominal pain - Integumentary/Breasts Reports boil - *Neurologic Reports headache(s) [facility] History Medical History: Reports:: Hyperlipidemia, Hypertension Denies:: Cancer, Diabetes Mellitus Type 1, Diabetes Mellitus Type 2, MRSA *Have you ever received a pneumonia vaccine?: No *Have you received a flu vaccine this season?: No Other Medical History: Reports: Thyroid Disease, Other (pre-diabetes) Other Surgeries: Yes: Hernia Repair, Tubal Ligation Amputation: No Fractures: No - *Social History Last grade of school completed: High school graduate Smoking Status: Current every day smoker Tobacco Type: cigarettes # Packs/Day (cigarettes): 1 Alcohol Intake: never Alcohol Intake Frequency:: holidays/special occasions only Substance Use Type: denies use *Occupational Status:: employed Housing: house Household Members: spouse *Travel in the last 8 weeks: None Family Hx:: Diabetes, Hypertension Meds Home Medications Medication Instructions Recorded Confirmed Type amlodipine 5 mg tablet 5 mg PO DAILY 01/07/19 03/31/21 History hydrochlorothiazide 25 mg tablet 25 mg PO DAILY 01/07/19 03/31/21 History levothyroxine 75 mcg tablet 75 mcg PO DAILY 01/07/19 03/31/21 History Amoxicillin [Amoxicillin 500mg 500 mg PO TID 03/31/21 03/31/21 History Cap] Atorvastatin Calcium [Lipitor 40mg 40 mg PO HS 03/31/21 03/31/21 History Tab] Fluticasone Propionate [Flonase 1 spr NS DAILY 03/31/21 03/31/21 History 50mcg nasal spray 16gm] Meloxicam 15 mg PO DAILY 03/31/21 03/31/21 History Allergies Allergy/AdvReac Type Severity Reaction Status Date / Time erythromycin base AdvReac Mild NA-NAUSEA/V Verified 01/07/19 18:50 OMITING Exam Vital signs and Labs for Last 24 Hours: Temp Pulse Resp BP Pulse Ox 99.8 F H 96 H 18 101/55 L 90 L 04/01/21 04:00 04/01/21 04:00 04/01/21 04:00 04/01/21 04:00 04/01/21 04:00 Laboratory Results - last 24 hr 03/31/21 17:27: WBC 7.5, RBC 5.15, Hgb 15.3, Hct 45.5, MCV 88.3, MCH 29.7, MCHC 33.7, RDW 13.5, Plt Count 286, MPV 8.9, Neut % (Auto) 87.7 H, Lymph % (Auto) 5.2 L, [place] % (Auto) 4.6, Eos % (Auto) 1.4, Baso % (Auto) 1.1, Neut # (Auto) 6.6, Lymph # (Auto) 0.4 L, [place] # (Auto) 0.4, Eos # (Auto) 0.1, Baso # (Auto) 0.1, Total Counted 100, Neutrophils % (Manual) 88 H, Lymphocytes % (Manual) 7 L, Monocytes % (Manual) 4, Eosinophils % (Manual) 1, Platelet Estimate Normal, RBC Morphology Normal, ESR 27 H 03/31/21 17:27: Sodium 137, Potassium 2.5 L*, Chloride 99, Carbon Dioxide 30, Anion Gap 10.5, BUN 5 L, Creatinine 0.70, Estimated Creat Clear 139, Estimated GFR 90, Est GFR ( Amer) 109, Glucose 94, Calcium 9.4, Total Bilirubin 0.3, AST 38 H, ALT 33, Alkaline Phosphatase 137 H, C-Reactive Pro
[2021-04-01 07:05] LABS: Anion Gap 6.7 mEq/L (5-15); Blood Urea Nitrogen 7 mg/dl (7-17); Calcium 8.1 mg/dl (8.4-10.2); Carbon Dioxide 33 mmol/L (22.0-30.0); Chloride 98 mmol/L (98-107); Creatinine Clearance Estimated 141 mL/min (50-200); Estimated Glomerular Filt Rate 90 ml/min (>60); GFR (African American) 109 ML/MIN (>60); Glucose 90 mg/dl (74-100); Sodium 135 mmol/L (136-145)
[2021-04-01 07:10] LABS: Potassium 2.7 mmoL/L (3.5-5.1)
--- NOTE | 2021-04-01 07:10 | PC.NURSE ---
pt left via hospital bed in satisfactory condition to surgery accompanied by surgery staff.
--- NOTE | 2021-04-01 07:13 | SUR.PREOP ---
LAb called with critical K-2.7 notified Nani Cassidy [id number], Dr Reid
--- NOTE | 2021-04-01 07:18 | HMH.PHAVTE ---
[facility] Pharmacy VTE Monitoring - Patient Demographics Admission date: 04/01/21 Report Date: 04/01/21 Time: 07:18 Allergies/Adverse Reactions: Patient Allergies erythromycin base Adverse Reaction (Mild, Verified 01/07/19 18:50) NA-NAUSEA/VOMITING Height: 1.6 m Weight: 88.8 kg Patient Problems: Current Active Problems Abscess or cellulitis of groin (Acute) HTN (hypertension) (Chronic) Tobacco use (Chronic) Obesity, Class I, BMI 30-34.9 (Chronic) Pre-diabetes (Chronic) Hypokalemia (Acute) - VTE Risk Labs: VTE Related Lab Results Hgb 15.3 g/dL (12.2-16.2) 03/31/21 17:27 Hct 45.5 % (37.0-47.0) 03/31/21 17:27 Plt Count 286 K/mm3 (142-424) 03/31/21 17:27 BUN 7 mg/dl (7-17) D 04/01/21 05:30 Creatinine 0.70 mg/dl (0.52-1.04) 04/01/21 05:30 Estimated Creat Clear 141 mL/min (50-200) 04/01/21 05:30 Clinical Trial Participant: No - Prophylaxis VTE Prophylaxis Ordered?: Yes Types of VTE Prophylaxis: TEDS Knee High
--- NOTE | 2021-04-01 07:49 | P.PN_ITS ---
[facility] Anesthesia Checklist - Patient Identification Patient Identification: Arm Band - Structural Data Admitted From: Inpatient Planned Operative Procedure/s: I&D Left Groin Abscess Consent for Planned Operative Procedure(s) Verified: Yes Verified Documents: Surgical Consent, History and Physical - NPO Status Verified Time NPO: 00:00 - Additional verifications Anesthesia Reactions: No - Airway Assessment C-Spine Mobility Assessed: Yes (mp2) TMJ Mobility Assessed: Yes Dentition: Good Dentition - Neurological Assessment Level of Consciousness: Awake, Alert - Anesthesia Plan Anesthesia Risk discussed: Yes Anesthesia Plan: Verified ASA Class: II Anesthesia Type: MAC (discussed with Dr. Justice. K+ 2.7, decision made with pt and surgeon to do local + mac) [facility] History I have reviewed the patient's past medical history: Yes Medical History: Reports:: Hyperlipidemia, Hypertension Denies:: Cancer, Diabetes Mellitus Type 1, Diabetes Mellitus Type 2, MRSA *Have you ever received a pneumonia vaccine?: No *Have you received a flu vaccine this season?: No Other Medical History: Reports: Thyroid Disease, Other (pre-diabetes) Anesthesia experience/problems:: nac Other Surgeries: Yes: Hernia Repair, Tubal Ligation Amputation: No Fractures: No - *Social History Last grade of school completed: High school graduate Smoking Status: Current every day smoker Tobacco Type: cigarettes # Packs/Day (cigarettes): 1 Alcohol Intake: never Alcohol Intake Frequency:: holidays/special occasions only Substance Use Type: denies use *Occupational Status:: employed Housing: house Household Members: spouse *Travel in the last 8 weeks: None Family Hx:: Diabetes, Hypertension
--- NOTE | 2021-04-01 07:53 | HMH.PHAINT ---
verified pt meds with [facility] recent fill history
--- NOTE | 2021-04-01 07:54 | PC.NURSE ---
Received report on pt, while pt already in surgery this am at approx 0700.
--- NOTE | 2021-04-01 08:00 | HMH.PHACONS ---
- Pharmacy Consult Date: 04/01/21 Time: 08:00 Referring provider: DR. RUIZ Reason for Consult:: VANCOMYCIN DOSING Allergies and ADEs:: Allergies Allergy/AdvReac Type Severity Reaction Status Date / Time erythromycin base AdvReac Mild NA-NAUSEA/V Verified 01/07/19 18:50 OMITING Home Medications:: Home Medications Medication Instructions Recorded Confirmed Type hydrochlorothiazide 25 mg tablet 25 mg PO DAILY 01/07/19 03/31/21 History Amoxicillin [Amoxicillin 500mg 500 mg PO TID 03/31/21 03/31/21 History Cap] Atorvastatin Calcium [Lipitor 40mg 40 mg PO HS 03/31/21 03/31/21 History Tab] Fluticasone Propionate [Flonase 1 spr NS DAILY 03/31/21 03/31/21 History 50mcg nasal spray 16gm] Meloxicam 15 mg PO DAILY 03/31/21 03/31/21 History Amlodipine Besylate [Amlodipine 10 mg PO DAILY 04/01/21 04/01/21 History 10mg Tab] Levothyroxine Sodium [Euthyrox] 112 mcg PO DAILY 04/01/21 04/01/21 History Potassium Chloride [Klor-Con 10mEq 10 meq PO DAILY 04/01/21 04/01/21 History tab] Height: 1.6 m Weight: 88.8 kg Laboratory Results:: Laboratory Results - last 24 hr 03/31/21 17:27: WBC 7.5, RBC 5.15, Hgb 15.3, Hct 45.5, MCV 88.3, MCH 29.7, MCHC 33.7, RDW 13.5, Plt Count 286, MPV 8.9, Neut % (Auto) 87.7 H, Lymph % (Auto) 5.2 L, [place] % (Auto) 4.6, Eos % (Auto) 1.4, Baso % (Auto) 1.1, Neut # (Auto) 6.6, Lymph # (Auto) 0.4 L, [place] # (Auto) 0.4, Eos # (Auto) 0.1, Baso # (Auto) 0.1, Total Counted 100, Neutrophils % (Manual) 88 H, Lymphocytes % (Manual) 7 L, Monocytes % (Manual) 4, Eosinophils % (Manual) 1, Platelet Estimate Normal, RBC Morphology Normal, ESR 27 H 03/31/21 17:27: Sodium 137, Potassium 2.5 L*, Chloride 99, Carbon Dioxide 30, Anion Gap 10.5, BUN 5 L, Creatinine 0.70, Estimated Creat Clear 139, Estimated GFR 90, Est GFR ( Amer) 109, Glucose 94, Calcium 9.4, Total Bilirubin 0.3, AST 38 H, ALT 33, Alkaline Phosphatase 137 H, C-Reactive Protein 62.8 H, Total Protein 7.3, Albumin 4.0, Globulin 3.3 H, Albumin/Globulin Ratio 1.2 03/31/21 17:27: Lactate 1.5 03/31/21 17:27: BUN 5 L, Creatinine 0.70, Estimated Creat Clear 139, Estimated GFR 90, Est GFR ( Amer) 109 04/01/21 05:30: Sodium 135 L, Potassium 2.7 L*, Chloride 98, Carbon Dioxide 33 H, Anion Gap 6.7, BUN 7 D, Creatinine 0.70, Estimated Creat Clear 141, Estimated GFR 90, Est GFR ( Amer) 109, Glucose 90, Calcium 8.1 L Medical History: Reports:: Hyperlipidemia, Hypertension Denies:: Cancer, Diabetes Mellitus Type 1, Diabetes Mellitus Type 2, MRSA Assessment and Plan (1) Abscess or cellulitis of groin Status: Acute Category: Medical (2) Hypokalemia Status: Acute Category: Medical Code(s): E87.6 - Hypokalemia (3) HTN (hypertension) Status: Chronic Qualifiers: Hypertension type: primary hypertension Qualified Code(s): I10 - Essential (primary) hypertension Category: Medical Code(s): I10 - Essential (primary) hypertension (4) Tobacco use Status: Chronic Category: Social Hx Code(s): Z72.0 - Tobacco use (5) Obesity, Class I, BMI 30-34.9 Status: Chronic Category: Medical Code(s): E66.9 - Obesity, unspecified (6) Pre-diabetes Status: Chronic Category: Medical Code(s): R73.03 - Prediabetes - Assessment and plan all Dx Assessment and Plan for all problems:: Pharmacokinetic dosing service Objective: Patient: Floor: Age: 45 yo Serum creatinine: 0.70 mg/dL Height: 63.0 Inches Weight (kg): 88.8 Assessment: IBW (kg): 52.40 Dosing wt(kg): 88.8 Estimated Creatinine clearance (ml/min): 83.1 CRCL method: Cockcroft and Gault using ibw(default). Drug selected: Vancomycin Loading dose (mg): Vd (liters): 71.0 (factor used: 0.8 L/kg) Silvano (hr-1): 0.073 Half life (hrs): 9.50 CLvanco=?? 5.183 L/hr Recommended dose: 1500 mg Interval: 12
--- NOTE | 2021-04-01 08:23 | HMH.OPNOTE ---
Date of procedure: 04/01/21 Pre-op Diagnosis:: Left groin abscess Post-op Diagnosis:: Same Procedure performed:: Incision and drainage of left groin abscess Surgeon:: Herman Justice MD Lithographic Retoucher Apprentice(s):: Roger CONTRACTS PAR[place]GAL:: Mark Waite Anesthesia: MAC Estimated blood loss (mL): 5 Operative findings:: Pocket of purulence noted along central portion of abscess Surrounding indurated tissue Operative note:: After informed consent was obtained the patient was taken to the operating room and placed in the supine position. Monitored anesthesia care ensued and her left groin was prepped and draped in a sterile fashion. A small incision was made along the central portion of the abscess. Fluid was obtained for Gram stain/culture. The cavity was evacuated and packed with moistened Kerlix. The entire region was infiltrated with 1% lidocaine and dressings were applied. She was transferred to recovery in stable condition. Condition: stable Disposition: PACU Specimens:: Fluid for Gram stain/culture Complications:: No immediate
--- NOTE | 2021-04-01 12:59 | PC.NURSE ---
Late entry for Vern beaver from 03/31/21 at 1845. Vern BEAVER reported critical potassium to Dr. Evangelista who gave the order for 60meq of po potassium one time. patient was also noted to have left side thigh abscess.
--- NOTE | 2021-04-01 13:11 | DIET.NUTRFU ---
Patient is prediabetic as stated in provider note with A1c of 6.1%. RD visited patient and she is aware and has received education on it but not ready to make dietary changes yet. This RD reviewed the importance of making dietary changes soon and reviewed some small changes to make quickly like diet soda. She had multiple regular soda at bedside. She did agreed to change to diabetic diet for the remainder of stay, notified kitchen.
--- NOTE | 2021-04-01 15:51 | PC.NURSE ---
Pt has done well post op. No c/os of pain. VSS. Held am amlodipine r/t low BP. CB in reach. No c/o's. Dsg cdi to left upper thigh.
--- NOTE | 2021-04-01 16:55 | P.PN_ITS ---
Internal Medicine - PN: Subj *Date: 04/01/21 *Time: 16:55 Interval history: Patient underwent successful I&D of the left inguinal abscess. This was successful. Patient states that she and she woke up from anesthesia she already felt better. Exam Vital signs and Labs for Last 24 Hours: Temp Pulse Resp BP Pulse Ox 98.3 F 81 20 97/61 L 96 04/01/21 13:05 04/01/21 13:05 04/01/21 13:05 04/01/21 13:05 04/01/21 13:05 Laboratory Results - last 24 hr 03/31/21 17:27: WBC 7.5, RBC 5.15, Hgb 15.3, Hct 45.5, MCV 88.3, MCH 29.7, MCHC 33.7, RDW 13.5, Plt Count 286, MPV 8.9, Neut % (Auto) 87.7 H, Lymph % (Auto) 5.2 L, [place] % (Auto) 4.6, Eos % (Auto) 1.4, Baso % (Auto) 1.1, Neut # (Auto) 6.6, Lymph # (Auto) 0.4 L, [place] # (Auto) 0.4, Eos # (Auto) 0.1, Baso # (Auto) 0.1, Total Counted 100, Neutrophils % (Manual) 88 H, Lymphocytes % (Manual) 7 L, Monocytes % (Manual) 4, Eosinophils % (Manual) 1, Platelet Estimate Normal, RBC Morphology Normal, ESR 27 H 03/31/21 17:27: Sodium 137, Potassium 2.5 L*, Chloride 99, Carbon Dioxide 30, Anion Gap 10.5, BUN 5 L, Creatinine 0.70, Estimated Creat Clear 139, Estimated GFR 90, Est GFR ( Amer) 109, Glucose 94, Calcium 9.4, Total Bilirubin 0.3, AST 38 H, ALT 33, Alkaline Phosphatase 137 H, C-Reactive Protein 62.8 H, Total Protein 7.3, Albumin 4.0, Globulin 3.3 H, Albumin/Globulin Ratio 1.2 03/31/21 17:27: Lactate 1.5 03/31/21 17:27: BUN 5 L, Creatinine 0.70, Estimated Creat Clear 139, Estimated GFR 90, Est GFR ( Amer) 109 04/01/21 05:30: Sodium 135 L, Potassium 2.7 L*, Chloride 98, Carbon Dioxide 33 H , Anion Gap 6.7, BUN 7 D, Creatinine 0.70, Estimated Creat Clear 141, Estimated GFR 90, Est GFR ( Amer) 109, Glucose 90, Calcium 8.1 L I & O for Last 24 hours: Intake & Output 03/30/21 03/31/21 04/01/21 04/02/21 11:59 11:59 11:59 11:59 Intake Total Balance Weight 195 lb 12.328 oz 195 lb 12.328 oz Microbiology Reports for the Last 24 Hours: Microbiology 04/01/21 08:20 Groin - Abscess Gram Stain - Final Narrative: Heart rate regular. Lungs clear. Abdomen soft, dressing in the inguinal area looks clean and dry. Redness on the left thigh where I marked out in the office yesterday looks improved and smaller with less induration. Neurologically patient is intact. Oropharynx clear. Assessment and Plan (1) Abscess or cellulitis of groin Status: Acute Category: Medical (2) Hypokalemia Status: Acute Category: Medical Code(s): E87.6 - Hypokalemia (3) HTN (hypertension) Status: Chronic Qualifiers: Hypertension type: primary hypertension Qualified Code(s): I10 - Essential (primary) hypertension Category: Medical Code(s): I10 - Essential (primary) hypertension (4) Tobacco use Status: Chronic Category: Social Hx Code(s): Z72.0 - Tobacco use (5) Obesity, Class I, BMI 30-34.9 Status: Chronic Category: Medical Code(s): E66.9 - Obesity, unspecified (6) Pre-diabetes Status: Chronic Category: Medical Code(s): R73.03 - Prediabetes - Assessment and plan all Dx Assessment and Plan for all problems:: Good result with surgery. Await cultures. Continue IV antibiotics. Advance diet postoperatively. Probable discharge tomorrow with home antibiotics.
[2021-04-02] VITALS: BP 110/60; PULSE 70; RESP 16; TEMP 36.6; O2SAT 98
[2021-04-02 04:00] VITALS: BP 106/63; PULSE 63; RESP 16; TEMP 36.6; O2SAT 94
[2021-04-02 04:52] VITALS: BMI 34.6
--- NOTE | 2021-04-02 06:26 | P.PN_ITS ---
Subjective Narrative: The patient is currently resting. Per nursing she has been fine . Progress Note: A&P (1) Abscess or cellulitis of groin Status: Acute Assessment and plan: Overall, doing well status post incision and drainage. Dressing changes Antibiotics as per primary service (2) Hypokalemia Status: Acute (3) HTN (hypertension) Status: Chronic (4) Tobacco use Status: Chronic (5) Obesity, Class I, BMI 30-34.9 Status: Chronic (6) Pre-diabetes Status: Chronic Exam Vital signs and Labs for Last 24 Hours: Temp Pulse Resp BP Pulse Ox 97.9 F 63 16 106/63 L 94 L 04/02/21 04:00 04/02/21 04:00 04/02/21 04:00 04/02/21 04:00 04/02/21 04:00 Laboratory Results - last 24 hr 04/01/21 05:30: Sodium 135 L, Potassium 2.7 L*, Chloride 98, Carbon Dioxide 33 H , Anion Gap 6.7, BUN 7 D, Creatinine 0.70, Estimated Creat Clear 141, Estimated GFR 90, Est GFR ( Amer) 109, Glucose 90, Calcium 8.1 L I & O for Last 24 hours: Intake & Output 03/30/21 03/31/21 04/01/21 04/02/21 11:59 11:59 11:59 11:59 Intake Total 304 / 304 Output Total 0 / 0 Balance 304 / 304 Weight 195 lb 12.328 oz 195 lb 5.273 oz Microbiology Reports for the Last 24 Hours: Microbiology 04/01/21 08:20 Groin - Abscess Gram Stain - Final - Constitutional no acute distress - *Routine Cardiovascular Exam Absent: tachycardia - *Routine Skin Exam Comments: Dressing in place. Patient is currently resting.
--- NOTE | 2021-04-02 06:51 | HMH.DCSUM ---
General - General Admission date:: 03/31/21 Discharge date: 04/02/21 HPI HPI: 45 year old female with history of tobacco use, hypertension and prediabetes presented to outpatient clinic today with reports of abscess in the left inguinal region. First noted this about 6 days ago, seemed insignificant but within 72 hours became very painful and she developed fevers up to 102F. Yesterday she developed spontaneous drainage and had gotten some relief from discomfort but today woke with significant increase in pain, erythema, fever again to 102F, nausea, vomiting and diarrhea. She denies history of known MRSA but does get boils occasionally. In our office she was noted to be febrile, mildly tachycardic, uncomfortable and to have significant induration and erythema surrounding left inguinal abscess and she was admitted for imaging, IV antibiotics and surgical consultation. Hospital Course Hospital Course: 45-year-old female admitted for left groin abscess. Taken to surgery yesterday with I&D performed. Tolerated procedure well. Significant improvement over the past 24 hours and surrounding redness and pain. Will need continued dressing changes and antibiotics. Transition from IV vancomycin and clindamycin to oral Bactrim today. Dose given prior to discharge. Continue for total of 10 days twice daily. We will have close follow-up the beginning of next week for monitoring. Follow-up with surgery in a week. Patient has help at home with dressing changes. Will consult home health for dressing change needs/materials. Examined on day of discharge. Medically stable for discharge home. Objective Vital signs: Temp Pulse Resp BP Pulse Ox 97.9 F 63 16 106/63 L 94 L 04/02/21 04:00 04/02/21 04:00 04/02/21 04:00 04/02/21 04:00 04/02/21 04:00 Narrative: Heart rate regular. Lungs clear Abdomen soft Left inguinal region minimal tenderness, no significant erythema, less induration Neurologically patient is intact MMM, Oropharynx clear. Results Labs on day of discharge: Labs from last 24 hours 04/01/21 05:30 Sodium 135 L Potassium 2.7 L* Chloride 98 Carbon Dioxide 33 H Anion Gap 6.7 BUN 7 D Creatinine 0.70 Estimated Creat Clear 141 Estimated GFR 90 Est GFR ( Amer) 109 Glucose 90 Calcium 8.1 L DS: Diagnosis - Discharge Diagnosis (1) Abscess or cellulitis of groin Status: Acute (2) Hypokalemia Status: Acute (3) HTN (hypertension) Status: Chronic (4) Tobacco use Status: Chronic (5) Obesity, Class I, BMI 30-34.9 Status: Chronic (6) Pre-diabetes Status: Chronic Discharge Plan - Patient Discharge Instructions Patient Instructions: DI for Hypokalemia, DI for Incision and Drainage of a Skin Abscess, DI for Surgical Site Infection, DI for Prediabetes - Follow up Plan Follow up with: Herman Justice MD [Staff Physician] - 1 week Melanie Jarrett APRN [Nurse Practitioner] - (follow-up the beginning of next week. (Mon or )) Disposition: Home Health Service Condition at discharge:: Stable Home Medications: Home Medications Medication Instructions Recorded Confirmed Type hydrochlorothiazide 25 mg tablet 25 mg PO DAILY 01/07/19 03/31/21 History Amoxicillin [Amoxicillin 500mg 500 mg PO TID 03/31/21 03/31/21 History Cap] Atorvastatin Calcium [Lipitor 40mg 40 mg PO HS 03/31/21 03/31/21 History Tab] Fluticasone Propionate [Flonase 1 spr NS DAILY 03/31/21 03/31/21 History 50mcg nasal spray 16gm] Meloxicam 15 mg PO DAILY 03/31/21 03/31/21 History Amlodipine Besylate [Amlodipine 10 mg PO DAILY 04/01/21 04/01/21 History 10mg Tab] Levothyroxine Sodium [Euthyrox] 112 mcg PO DAILY 04/01/21 04/01/21 History Potassium Chloride [Klor-Con 10mEq 10 meq PO DAILY 04/01/21 04/01/21 History tab] Hydrocodone/Acetaminophen 1 each PO DAILY 7 Days #7 tab 04/02/21 Rx [Hydrocodone-Acetamin 5-325 mg] Sulfameth
[2021-04-02 07:02] LABS: Basophils # 0.1 K/mm3 (0-0.2); Basophils % 1.5 % (0.1-2.0); Eosinophils % 0.4 % (0.1-12.0); Hematocrit 41.2 % (37.0-47.0); Hemoglobin 13.4 g/dL (12.2-16.2); Lymphocytes # 2.2 K/mm3 (0.7-4.5); Lymphocytes % 38.2 % (10-50); Mean Corpuscular HGB Conc 32.6 g/dL (31.8-35.4); Mean Corpuscular Hemoglobin 29.6 pg (27.0-31.2); Mean Corpuscular Volume 90.8 fl (81-99); Monocytes # 0.4 K/mm3 (0.1-1.0); Monocytes % 6.8 % (1.7-9.3); Neutrophils % 53.1 % (37.0-80.0); Platelet Count 270 K/mm3 (142-424); Red Blood Count 4.54 M/mm3 (4.20-5.40); Red Cell Distribution Width 13.7 % (11.5-17.5); White Blood Count 5.7 K/mm3 (4.8-10.8)
[2021-04-02 07:16] LABS: Anion Gap 10.1 mEq/L (5-15); Blood Urea Nitrogen 6 mg/dl (7-17); Calcium 8.2 mg/dl (8.4-10.2); Carbon Dioxide 30 mmol/L (22.0-30.0); Chloride 103 mmol/L (98-107); Creatinine Clearance Estimated 164 mL/min (50-200); Estimated Glomerular Filt Rate 108 ml/min (>60); GFR (African American) 130 ML/MIN (>60); Glucose 92 mg/dl (74-100); Potassium 3.1 mmoL/L (3.5-5.1); Sodium 140 mmol/L (136-145)
[2021-04-02 07:53] VITALS: BP 101/44; PULSE 60; RESP 18; TEMP 36.8; O2SAT 100
[2021-04-02 11:41] LABS: Vancomycin,Trough 8.9 ug/mL (5.0-10.0)
== END 2021-04-02 11:08 | disposition home health service (06) ==
PROVIDERS: Nurse Practitioner Family; Surgery; Admitting Provider Internal Medicine Adolescent Medicine; PCP Internal Medicine Adolescent Medicine; Visit Provider Internal Medicine Adolescent Medicine
DX: L02.214 Cutaneous abscess of groin (principal); F17.210 Nicotine dependence, cigarettes, uncomplicated; I10 Essential (primary) hypertension; E87.6 Hypokalemia; Z79.899 Other long term (current) drug therapy
CPT/HCPCS: 10061; 36415; 72193; 73701; 80048; 80053; 80202; 82565; 83605; 84520; 85007; 85025; 85651; 86140; 87040; 87070; 87075; 87077; 87186; 87205; 93971; G0378; Q9967

== ENCOUNTER 2021-07-20 20:33 | Emergency (ER) | payer BC, SELFPAY ==
[2021-07-20 20:36] VITALS: BP 125/80; PULSE 98; RESP 18; TEMP 36.9; O2SAT 97; BMI 32.2
[2021-07-20 20:57] VITALS: BMI 25.0
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
[2021-07-20 22:23] VITALS: BP 134/75; PULSE 90; RESP 18; TEMP 36.9; O2SAT 97
== END 2021-07-20 22:30 | disposition home or self-care (01) ==
PROVIDERS: Emergency Provider Emergency Medicine; PCP Internal Medicine Adolescent Medicine
DX: S01.512A Laceration without foreign body of oral cavity, initial encounter (principal); S06.0X9A Concussion with loss of consciousness of unspecified duration, initial encounter; R51.9 Headache, unspecified; I10 Essential (primary) hypertension; E78.5 Hyperlipidemia, unspecified; E03.9 Hypothyroidism, unspecified; F17.210 Nicotine dependence, cigarettes, uncomplicated; Z79.51 Long term (current) use of inhaled steroids; Z88.0 Allergy status to penicillin; Z88.1 Allergy status to other antibiotic agents; Z88.3 Allergy status to other anti-infective agents; Y04.2XXA Assault by strike against or bumped into by another person, initial encounter
CPT/HCPCS: 12011; 70450; 70486; 72125; 90471; 90714; 99285

== ENCOUNTER 2022-02-21 10:27 | Emergency (ER) | payer BC, SELFPAY ==
[2022-02-21 13:05] VITALS: BP 0/0; PULSE 0; RESP 0; TEMP -17.7; TEMP 0
== END 2022-02-21 13:06 | disposition left against medical advice (07) ==
PROVIDERS: Emergency Provider Nurse Practitioner Family; PCP Nurse Practitioner Family
DX: Z53.21 Procedure and treatment not carried out due to patient leaving prior to being seen by health care provider (principal)

== ENCOUNTER → 2022-06-03 09:02 | Outpatient (CLI) | payer BC, SELFPAY ==
[2022-06-03 09:16] LABS: Adenovirus F 40/41, stool Not Detected (NotDetected); Astrovirus Not Detected (NotDetected); Campylobacter Not Detected (NotDetected); Clostridium Difficile A/B, PCR Not Detected (NotDetected); Cryptosporidium Not Detected (NotDetected); Cyclospora Cayetanesis Not Detected (NotDetected); Entamoeba histolytica Not Detected (NotDetected); Enteropathogenic E coli Not Detected (NotDetected); Enterotoxigenic E coli Not Detected (NotDetected); Giardia lamblia Not Detected (NotDetected); Norovirus Not Detected (NotDetected); Plesimonas Shigalloides, PCR Not Detected (NotDetected); Rotavirus A Not Detected (NotDetected); Salmonella, PCR Not Detected (NotDetected); Sapovirus Not Detected (NotDetected); Shiga-like toxin E coli Not Detected (NotDetected); Shigella Enterovasive E coli Not Detected (NotDetected); Vibrio Cholerae Not Detected (NotDetected); Vibrio, PCR Not Detected (NotDetected); Yersinia Entercolitica, PCR Not Detected (NotDetected)
[2022-06-03 19:27] LABS: Enteroaggregative E coli Detected (NotDetected)
== END ==
PROVIDERS: PCP Nurse Practitioner Family; Visit Provider Nurse Practitioner Family
DX: R19.7 Diarrhea, unspecified (principal); A04.0 Enteropathogenic Escherichia coli infection
CPT/HCPCS: 87507

== ENCOUNTER → 2023-02-21 10:32 | Outpatient (POV) | payer BC, SELFPAY | PROVIDERS: PCP Nurse Practitioner Family; Visit Provider Dermatology | DX: Z00.00 Encounter for general adult medical examination without abnormal findings (principal) ==

== ENCOUNTER → 2023-03-16 11:45 | Outpatient (CLI) | payer OTHER, SELFPAY ==
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
== END ==
PROVIDERS: PCP Nurse Practitioner Family; Visit Provider Nurse Practitioner Family
DX: M54.42 Lumbago with sciatica, left side (principal); G89.29 Other chronic pain
CPT/HCPCS: 72110

== ENCOUNTER 2023-03-30 08:53 | Outpatient (RCR) | payer OTHER, SELFPAY ==
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
== END 2023-03-30 10:00 | disposition home or self-care (01) ==
LOC: PT 08:53
PROVIDERS: PCP Nurse Practitioner Family; Visit Provider Nurse Practitioner Family
DX: M54.42 Lumbago with sciatica, left side
CPT/HCPCS: 97163; 97535

== ENCOUNTER 2023-04-12 15:01 | Emergency (ER) | payer OTHER, SELFPAY ==
[2023-04-12 15:10] VITALS: BP 133/84; PULSE 91; RESP 19; TEMP 36.6; O2SAT 98; BMI 34.3
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
--- NOTE | 2023-04-12 15:27 | PC.NURSE ---
Called RAD about xray
--- NOTE | 2023-04-12 15:37 | EXP.UTC ---
Discharge Plan Disposition Patient Disposition: Home, Self-Care Condition: Good Prescriptions Prescriptions: No Action hydrochlorothiazide 25 mg tablet 25 mg PO DAILY atorvastatin 40 MG tablet 40 mg PO HS potassium chloride 10 MEQ tablet extended release 10 meq PO DAILY amlodipine 10 MG tablet 10 mg PO DAILY levothyroxine 112 MCG tablet 112 mcg PO DAILY alprazolam 0.5 mg tablet See Rx Instructions .ROUTE .COMPLEX Patient Comments: TAKE ONE TABLET BY MOUTH EVERY DAY NEEDED FOR ANXIETY MAY CAUSE DROWSINESS Rx Instructions: TAKE ONE TABLET BY MOUTH EVERY DAY NEEDED FOR ANXIETY MAY CAUSE DROWSINESS diclofenac sodium 75 mg tablet,delayed release (DR/EC) 75 mg PO DAILY Patient Comments: TAKE ONE TABLET BY MOUTH TWICE DAILY --TAKE WITH FOOD-- escitalopram oxalate 10 mg tablet 10 mg PO DAILY Patient Comments: TAKE ONE TABLET BY MOUTH EVERY DAY Referrals Follow up/Referrals: Awa Benites APRN [Primary Care Provider] - See instructions Activity Restrictions/Add. Instructions Additional Instructions/Restrictions: Go home and rest. It would be best if you rested tomorrow too. Take tylenol for pain. Follow up with your regular doctor. GO TO THE ER FOR ANY WORSENING SYMPTOMS OR CONCERN, ESPECIALLY BOWEL OR BLADDER ISSUES, SADDLE AREA NUMBNESS, FEVER, ETC Clinical Impressions Clinical Impression: Closed head injury Instructions Patient Instructions: DI for Concussion, Closed Head Injury Discharge ED Provider: Mckinley Kaur [facility] General Stated complaint: WC 04/12/23 1200 Fell hit head and left cheek Mode of Arrival: Ambulatory Source of Information: Patient Limitations: No Limitations Time Seen by Provider: 04/12/23 15:36 Description of Symptoms (Recalled from Triage Doc. by RN): Pt fell at work and hit the left side of her face on the sidewalk today at noon. 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 She came down and hit the right side of her face on the ground. She has had right cheek pain since then. She denies any loss of consciousness, dizziness, nausea/vomiting, and headache. Related Data Home Medications Medication Instructions Recorded Confirmed hydrochlorothiazide 25 mg tablet 25 mg PO DAILY blood pressure 01/07/19 04/12/23 atorvastatin 40 mg tablet 40 mg PO HS Cholesterol 03/31/21 04/12/23 amlodipine 10 mg tablet 10 mg PO DAILY Hypertension 04/01/21 04/12/23 levothyroxine 112 mcg tablet 112 mcg PO DAILY hypothyroidism 04/01/21 04/12/23 potassium chloride 10 mEq 10 meq PO DAILY Supplement 04/01/21 04/12/23 tablet,extended release alprazolam 0.5 mg tablet See Rx Instructions .Route .COMPLEX 04/12/23 04/12/23 diclofenac sodium 75 mg 75 mg PO DAILY 04/12/23 04/12/23 tablet,delayed release escitalopram oxalate 10 mg tablet 10 mg PO DAILY 04/12/23 04/12/23 Allergies Allergy/AdvReac Type Severity Reaction Status Date / Time erythromycin base AdvReac Mild NA-NAUSEA/V Verified 04/12/23 15:23 OMITING Worker's Comp Is this a Worker's Comp case?: Yes Is this an [facility] Worker's Comp?: Yes Is this a [facility] Worker's Comp?: No [facility] Disclaimer: The information contained in this section may have been updated after the patient was seen, as this information can be updated by other users. Social History Smoking Status: Current every day smoker tobacco type: cigarettes packs per day: 1 second hand exposure: Yes alcohol intake: never substance use type: denies use current occupational status: employed Travel in the last 8 weeks: None household members: spouse housing: house current occupational exposures/hazards: No caffeine: No ROS Obtained: Yes All systems reviewed & no additional complaints except as documented Constitutional Constitutional: Denies chills, Denies fever(s), Denies headache(s) and Denies weakness Eyes Eyes: Denies eye discharge and Denies loss of vision ENT Ears, Nose, Mouth, and Throat: Denies disequilibrium, Denies dizziness, Denies otalgia, Denies headache(s), Denies sore throat and Denies vertigo Cardiovascular Cardiovascular: Denies chest pain and Denies syncope Respiratory Respiratory: Denies shortness of breath, Denies chest congestion, Denies cough, Denies stridor and Denies wheezing Gastrointestinal Gastrointestingal: Denies nausea or vomiting Musculoskeletal Musculoskeletal: Reports system reviewed and no additional complaints, except as documented, Denies abnormal gait, Denies arthralgias, Denies numbness and Denies tingling Integumentary/Breasts Skin/Breast: Denies rash Neurologic Neurologic: Reports as per HPI, Denies abnormal gait, Denies abnormal speech, Denies burning sensations, Denies confusion, Denies disequilibrium, Denies dizziness, Denies focal weakness, Denies headache(s), Denies loss of vision, Denies numbness, Denies other visual disturbances, Denies paresthesias, Denies syncope, Denies tingling, Denies tremor(s), Denies vertigo and Denies weakness Allergic/Immunologic Allergic/Immunologic: Denies wheezing Physical Exam General General appearance: alert and in no apparent distress Head Head exam: atraumatic, normocephalic and normal inspection Eye Eye exam: Present normal appearance, PERRL and EOMI ENT ENT exam: Present normal exam, normal oropharynx, mucous membranes moist, TM's normal bilaterally and normal external ear exam Neck Neck exam: Present normal inspection, full ROM and trachea midline; Absent meningismus or lymphadenopathy Chest Chest inspection: Present normal inspection and symmetric chest wall rise; Absent tenderness Respiratory Respiratory exam: Present normal lung sounds bilaterally; Absent respiratory distress Cardiovascular Cardiovascular exam: Present regular rate and normal rhythm; Absent JVD Abdominal Exam Abdominal exam: Present soft and normal bowel sounds; Absent distention, tenderness or guarding Extremities Exam Extremities exam: Present normal inspection, full ROM and normal capillary refill; Absent calf tenderness Back Exam Back exam: Present normal inspection; Absent tenderness Neurological Exam Neurological exam: Present alert, oriented X3, CN II-XII intact, normal gait and reflexes normal; Absent motor sensory deficit Expanded Neurological Exam Patient oriented to: Present person, place and time Speech: Present fluid speech Cranial nerves: Normal: EOM function (II, III, IV, ), facial sensation (V), facial palsy (VII), gag reflex (IX), spinal accessory function (XI) and tongue deviation (XII) Cerebellar function: normal gait and Romberg normal Motor strength - LUE: 5/5 Motor strength - RUE: 5/5 Motor strength - LLE: 5/5 Motor strength - RLE: 5/5 Upper motor neuron exam: Normal: lisa neglect and sensory extinction Sensory exam upper extremity: Normal: light touch and 2 point discrimination Sensory exam lower extremity: Normal: light touch and 2 point discrimination DTR: 2+: biceps (L), biceps (R), patellar (L), patellar (R), Achilles tendon (L) and Achilles tendon (R) Spinal cord function: Absent saddle anesthesia Psychiatric Psychiatric exam: Present normal affect and normal mood Skin Skin exam: Present warm, dry, intact and normal color Lymphatic Lymphatic Findings: no adenopathy Medical Decision Making Medical Records Medical records reviewed: No I reviewed the patient's medical records. Madhu Inquiry Pt receiving controlled substance: No Vital Signs: 04/12/23 15:10 Temperature 97.9 F Temperature Source Oral Pulse Rate [Right Radial] 91 H Respiratory Rate 19 Blood Pressure [Right Arm] 133/84 Blood Pressure Mean [Right Arm] 100 Blood Pressure Source [Right Arm] Automatic Cuff Blood Pressure Position [Right Arm] Sitting 02 Sat by Pulse Oximetry 98 Oxygen Delivery Method Room Air Orders (Tests/Meds): ORDERS Category Date Time Status XR facial bones min 3V Stat Exams 04/12/23 15:15 Ordered Radiology Data #1: Image(s): Other (facial bones) Image Reviewed: Yes I reviewed the patient's radiology image Preliminary Findings: No Fracture Seen FINAL REPORT CLINICAL HISTORY: FELL AND HIT SIDEWALK COMPARISON: None FINDINGS: Three views of the facial bones were obtained. There is no acute fracture or dislocation. No air-fluid levels identified. There is no soft tissue abnormality. IMPRESSION: No acute bony abnormality identified. Reviewed, Interpreted and Dictated by Yunier Poole III, MD Transcribed by Juanita Bowles Authenticated and [facility]
[2023-04-12 16:34] VITALS: BP 133/84; PULSE 91; RESP 18; TEMP 36.6; O2SAT 98
== END 2023-04-12 16:34 | disposition home or self-care (01) ==
PROVIDERS: Emergency Provider Nurse Practitioner Family; PCP Nurse Practitioner Family
DX: S09.93XA Unspecified injury of face, initial encounter (principal); F17.210 Nicotine dependence, cigarettes, uncomplicated; W00.0XXA Fall on same level due to ice and snow, initial encounter
CPT/HCPCS: 70150; 99212; 99214; G0463

== ENCOUNTER 2023-06-09 16:34 | Outpatient (CLI) | payer OTHER, SELFPAY ==
--- NOTE | 2023-06-09 16:37 | MM_ITS ---
PROCEDURE INFORMATION: Exam: MG Bilateral Screening 3D Mammography Exam date and time: 06/09/2023 4:23 PM Age: 47 years old Clinical indication: Screening examination TECHNIQUE: Imaging protocol: Bilateral Screening tomosynthesis and 2D mammography including computer-aided detection (CAD) when performed. COMPARISON: 1. MG MM DIG SCREENING MAMM BI W/CAD 12/05/2019 9:59 AM 2. MG DMDXUAVL DIG MAMM-DX UNI ADD VIEWS-LT 01/01/2015 1:37 PM FINDINGS: MAMMOGRAPHY: Breast composition: There are scattered areas of fibroglandular density. Mass: None. Architectural distortion: None. Calcifications: No suspicious calcifications. Asymmetric density: None. Skin thickening: None. Axillary adenopathy: None. IMPRESSION: No mammographic evidence of malignancy. Annual screening is recommended unless otherwise clinically indicated. ASSESSMENT: BI-RADS Category 1: Negative
== END 2023-06-09 23:59 ==
LOC: RAD 16:35
PROVIDERS: PCP Nurse Practitioner Family; Visit Provider Nurse Practitioner Family
DX: Z12.31 Encounter for screening mammogram for malignant neoplasm of breast (principal)
CPT/HCPCS: 77063; 77067

== ENCOUNTER 2023-06-14 12:47 | Emergency (ER) | payer OTHER, SELFPAY ==
[2023-06-14 13:10] VITALS: BP 118/81; PULSE 102; RESP 20; TEMP 36.8; O2SAT 98; BMI 33.5
--- NOTE | 2023-06-14 13:29 | EXP.UTC ---
Discharge Plan Disposition Patient Disposition: Home, Self-Care Condition: Good Prescriptions Prescriptions: New penicillin V potassium 500 mg tablet 500 mg PO BID Qty: 20 0RF No Action hydrochlorothiazide 25 mg tablet 25 mg PO DAILY loratadine 10 mg Tablet 10 mg PO DAILY atorvastatin 40 MG tablet 40 mg PO HS potassium chloride 10 MEQ tablet extended release 10 meq PO DAILY amlodipine 10 MG tablet 10 mg PO DAILY levothyroxine 112 MCG tablet 112 mcg PO DAILY alprazolam 0.5 mg tablet See Rx Instructions .ROUTE .COMPLEX Patient Comments: TAKE ONE TABLET BY MOUTH EVERY DAY NEEDED FOR ANXIETY MAY CAUSE DROWSINESS Rx Instructions: TAKE ONE TABLET BY MOUTH EVERY DAY NEEDED FOR ANXIETY MAY CAUSE DROWSINESS diclofenac sodium 75 mg tablet,delayed release (DR/EC) 75 mg PO DAILY Patient Comments: TAKE ONE TABLET BY MOUTH TWICE DAILY --TAKE WITH FOOD-- escitalopram oxalate 10 mg tablet 10 mg PO DAILY Patient Comments: TAKE ONE TABLET BY MOUTH EVERY DAY Referrals Follow up/Referrals: Awa Benites APRN [Primary Care Provider] - See instructions Activity Restrictions/Add. Instructions Additional Instructions/Restrictions: *Monitor Temp, Over the counter Motrin or Tylenol as directed/as needed Tylenol every 4 hours and Motrin every 6 hours (as long as your family doctor has told you that you can take it) for fever or pain. and straight to ER if unable to lower temp less than 101.0 after medication given *Warm salt water gargles may help to soothe the throat *Throat Lozenges? *Warm fluids like tea with honey may help to soothe the throat? *Sleep elevated *Humidifier/Vaporizer *If you did not take Penicillin shot or was unable to, start taking antibiotic immediately and make sure that you take it for the FULL length of time although you should start to feel better in 24-48 hours *change toothbrush and toothpaste 24-48 hours after starting to take antibiotics so you do not reinfect yourself Monitor Temp. Tylenol and/or Ibuprofen as needed. ER if fever is no less than 101 despite alternating Tylenol and Ibuprofen * Encourage fluids, water, Gatorade, powerade, pedialyte if infant/toddler/or child *Cold fluids, popsicles and ice cream may feel good on his throat Follow up IMMEDIATELY for new or worsening symptoms or no Noticeable improvement over the next 48-72 hours. 911 for difficulty breathing or swallowing Clinical Impressions Clinical Impression: Strep throat Instructions Patient Instructions: DI for Strep Throat, Strep Throat Discharge ED Provider: Odalis Vogel [facility] [place] HPI General Stated complaint: sinus congestion, drainage, sore throat Mode of Arrival: Ambulatory Source of Information: Patient Limitations: No Limitations Time Seen by Provider: 06/14/23 13:29 Description of Symptoms (Recalled from Triage Doc. by RN): PATIENT C/O SORE THROAT, SINUS DRAINAGE, COUGH, AND BODY ACHES THAT STARTED TODAY HEENT Symptoms (Recalled from RN notes): Yes Resp Symptoms (Recalled from RN notes): Yes Skin Symptoms (Recalled from RN notes): No MS Symptoms (Recalled from RN notes): No Functional Status (Recalled from RN notes): WNL History of Present Illness Provider Complaint: Patient states that she was fine when she woke up this morning but as the day went on she started with body aches, chills, sore throat, sinus drainage and headache States this evening she was feeling worse so she came in Related Data Home Medications Medication Instructions Recorded Confirmed hydrochlorothiazide 25 mg tablet 25 mg PO DAILY blood pressure 01/07/19 06/14/23 atorvastatin 40 mg tablet 40 mg PO HS Cholesterol 03/31/21 06/14/23 amlodipine 10 mg tablet 10 mg PO DAILY Hypertension 04/01/21 06/14/23 levothyroxine 112 mcg tablet 112 mcg PO DAILY hypothyroidism 04/01/21 06/14/23 potassium chloride 10 mEq 10 meq PO DAILY Supplement 04/01/21 06/14/23 tablet,extended release alprazolam 0.5 mg tablet See Rx Instructions .Route .COMPLEX 04/12/23 06/14/23 diclofenac sodium 75 mg 75 mg PO DAILY 04/12/23 06/14/23 tablet,delayed release escitalopram oxalate 10 mg tablet 10 mg PO DAILY 04/12/23 06/14/23 loratadine 10 mg tablet 10 mg PO DAILY 06/14/23 06/14/23 Previous Rx's Medication Instructions Recorded penicillin V potassium 500 mg 500 mg PO BID #20 tabs 06/14/23 tablet Allergies Allergy/AdvReac Type Severity Reaction Status Date / Time erythromycin base AdvReac Mild NA-NAUSEA/V Verified 04/12/23 15:23 OMITING Worker's Comp Is this a Worker's Comp case?: No [facility] Disclaimer: The information contained in this section may have been updated after the patient was seen, as this information can be updated by other users. Medical History (Updated 06/14/23 @ 13:40 by Odalis Vogel APRN) Thyroid disease Kidney stones Anxiety Hyperlipidemia Hypertension Surgical History (Updated 06/14/23 @ 13:27 by Veronique Singer RN) History of hernia surgery History of tubal ligation Social History Smoking Status: Current every day smoker tobacco type: cigarettes packs per day: 1 second hand exposure: Yes alcohol intake: never substance use type: denies use current occupational status: employed Travel in the last 8 weeks: None household members: spouse housing: house current occupational exposures/hazards: No caffeine: No ROS Obtained: Yes All systems reviewed & no additional complaints except as documented and Yes Systems reviewed as appropriate & no additional complaints except as documented Constitutional Constitutional: Reports system reviewed and no additional complaints, except as documented, Reports as per HPI, Reports body ache and Reports chills ENT Ears, Nose, Mouth, and Throat: Reports system reviewed and no additional complaints, except as documented, Reports as per HPI, Reports nasal congestion, Reports nasal discharge and Reports sore throat Cardiovascular Cardiovascular: Reports system reviewed and no additional complaints, except as documented and Reports as per HPI Respiratory Respiratory: Reports system reviewed and no additional complaints, except as documented and Reports as per HPI Gastrointestinal Gastrointestingal: Reports system reviewed and no additional complaints, except as documented and as per HPI Physical Exam General General appearance: alert and in no apparent distress ENT ENT exam: Present mucous membranes moist Expanded ENT Exam Throat exam: Present tonsillar erythema Respiratory Respiratory exam: Present normal lung sounds bilaterally; Absent respiratory distress or wheezes Cardiovascular Cardiovascular exam: Present regular rate, normal rhythm and normal heart sounds Abdominal Exam Abdominal exam: Present soft and normal bowel sounds; Absent distention or tenderness Neurological Exam Neurological exam: Present alert, oriented X3 and normal gait Medical Decision Making Madhu Inquiry Pt receiving controlled substance: No Madhu was queried for this patient: No Vital Signs: 06/14/23 13:10 Temperature 98.2 F Temperature Source Oral Pulse Rate [Right Brachial] 102 H Respiratory Rate 20 Blood Pressure [Right Arm] 118/81 Blood Pressure Mean [Right Arm] 93 Blood Pressure Source [Right Arm] Automatic Cuff Blood Pressure Position [Right Arm] Sitting 02 Sat by Pulse Oximetry 98 Oxygen Delivery Method Room Air Lab Data Lab results reviewed: Yes I reviewed the patient's lab results.
[2023-06-14 13:42] LABS: UTC Strep Screen (Rapid) Positive (Negative)
[2023-06-14 13:43] LABS: UTC Influenza A Antigen Negative (Negative); UTC Influenza B Antigen Negative (Negative)
[2023-06-14 13:48] VITALS: BP 118/81; PULSE 102; RESP 20; TEMP 36.8; O2SAT 98
== END 2023-06-14 13:53 | disposition home or self-care (01) ==
PROVIDERS: Emergency Provider Nurse Practitioner; PCP Nurse Practitioner Family
DX: J02.0 Streptococcal pharyngitis (principal); R05.9 Cough, unspecified; R09.81 Nasal congestion; E07.9 Disorder of thyroid, unspecified; I10 Essential (primary) hypertension; E78.5 Hyperlipidemia, unspecified; F41.9 Anxiety disorder, unspecified; F17.210 Nicotine dependence, cigarettes, uncomplicated
CPT/HCPCS: 87804; 87880; 99212; 99214; G0463

== ENCOUNTER → 2023-06-16 15:59 | Outpatient (CLI) | payer OTHER, SELFPAY | LOC: SL 16:00 | PROVIDERS: PCP Nurse Practitioner Family; Visit Provider Nurse Practitioner Family | DX: R06.83 Snoring (principal) | CPT/HCPCS: G0399 ==

== ENCOUNTER 2023-09-05 09:24 | Day surgery (SDC) | payer OTHER, SELFPAY ==
[2023-09-04 14:31] VITALS: BMI 32.8
[2023-09-05] VITALS (10 sets, daily range): BP systolic 90–132; BP diastolic 54–73; PULSE 67–85; RESP 14–18; TEMP 36.2–36.4; O2SAT 93–98
--- NOTE | 2023-09-05 09:59 | HMH.SCOPE ---
Procedure: Date: 09/05/23 Patient Date of :: 1975 Procedure Performed:: Colonoscopy with biopsy Indications:: Screening Intermittent diarrhea/constipation Performing Provider:: Herman Justice MD Referring Provider:: . Sedation:: Monitored anesthesia care Procedure:: After informed consent was obtained the patient was taken to the endoscopy suite. Sedation ensued after the patient was transferred to the left lateral decubitus position. Pulse, blood pressure, and oxygen saturation were monitored throughout the procedure. Digital rectal exam revealed no significant abnormality. The colonoscope was placed in position. The entire colon was evaluated. The colonoscope was carefully removed and the patient was transferred to recovery in stable condition. Please see findings and specimens below for detail. Findings:: Bowel preparation moderate to poor Hemorrhoidal cushions Fairly profound tortuosity Fairly profound lack of relaxation/spasticity Sigmoid diverticulosis Focal patchy colitis with small linear ulceration (cecum) Specimens:: Biopsy of small linear lobulated ulceration (cecum) [tattoo and biopsy] Recommendations:: Follow-up pathology Likely short-term repeat colonoscopy (consider deference to gastroenterology) Consider barium enema secondary to spasticity/lack of relaxation and tortuosity Consider gastroenterology consultation secondary to intermittent diarrhea/constipation Complications:: No immediate Estimated blood obtained (mL): 1 Colonoscopy Component Colonoscopy Component Was a colonoscopy performed during today's procedure?: Yes Recommended follow up colonoscopy of at least 10 years?: No If no, follow up colonoscopy recommended in ___ years?: (See above) Reason for not recommending >/= 10 yr follow-up interval?: (See above)
--- NOTE | 2023-09-05 09:59 | EXP.ANES.CKL ---
[facility] Disclaimer: The information contained in this section may have been updated after the patient was seen, as this information can be updated by other users. Medical History Sleep apnea Hypothyroid Allergies Thyroid disease Kidney stones Anxiety Hyperlipidemia Hypertension Surgical History History of hernia surgery History of tubal ligation Family History Other Diabetes Lung cancer Social History Smoking Status: Former smoker tobacco type: cigarettes packs per day: 1 second hand exposure: Yes alcohol intake: never substance use type: denies use current occupational status: employed Travel in the last 8 weeks: None household members: spouse housing: house current occupational exposures/hazards: No caffeine: No [facility] Anesthesia Checklist Patient Identification Patient Identification: Arm Band and Verbal (Name & ) Structural Data Admitted From: Home Planned Operative Procedure/s: Colonoscopy Consent for Planned Operative Procedure(s) Verified: Yes Verified Documents: Surgical Consent and History and Physical NPO Status Verified Time NPO: 00:00 Additional verifications Anesthesia Reactions: No Airway Assessment Mallampati Score:: Class IV C-Spine Mobility Assessed: Yes TMJ Mobility Assessed: Yes Dentition: Good Dentition Neurological Assessment Level of Consciousness: Awake Hx Seizures: No Numbness or tingling in extremities: No Anesthesia Plan Anesthesia Risk discussed: Yes Anesthesia Plan: Verified ASA Class: II Anesthesia Type: MAC
[2023-09-05] MEDS: LACTATED RINGERS 1000ML 1,000 ML 25 ML IV (10:07)
[2023-09-05 10:21] LABS: Urine Pregnancy, HCG Qual. Negative (Negative)
--- NOTE | 2023-09-05 11:23 | SUR.PHASEII ---
Pt staying for (2) hours post-operatively. Pt reporting 0/10 on pain scale. No s/s of N/V. Talking to boyfriend at bedside. VSS. Bed locked and in lowest position, call light within reach.
== END 2023-09-05 13:15 | disposition home or self-care (01) ==
LOC: OUTP 09:26
PROVIDERS: PCP Nurse Practitioner Family; Visit Provider Surgery
PROC: 0DJD8ZZ Inspection of Lower Intestinal Tract, Via Natural or Artificial Opening Endoscopic (ICD-10-PCS; CPT 45378; principal; 2023-09-05 10:30)
DX: Z12.11 Encounter for screening for malignant neoplasm of colon (principal); K64.8 Other hemorrhoids; K56.2 Volvulus; K57.30 Diverticulosis of large intestine without perforation or abscess without bleeding; K51.90 Ulcerative colitis, unspecified, without complications
CPT/HCPCS: 45378; 81025; J7120

== ENCOUNTER 2023-11-03 08:23 | Outpatient (CLI) | payer OTHER, SELFPAY ==
--- NOTE | 2023-11-03 08:26 | US_ITS ---
FINAL REPORT CLINICAL HISTORY: UPPER ABD PAIN COMPARISON: None FINDINGS: Sonographic images of the right upper quadrant were obtained. The pancreas is partially obscured.The liver has an unremarkable appearance. There is a gallbladder polyp versus adenomyosis. There is no evidence of biliary ductal dilatation.The common duct measures 4mm. There is a questionable 5 mm stone in the lower pole the right kidney. IMPRESSION: Gallbladder polyp versus adenomyosis. Questionable 5 mm stone lower pole right kidney. Reviewed, Interpreted and Dictated by Yunier Poole III, MD Transcribed by Juanita Bowles Authenticated and [facility]
== END 2023-11-03 23:59 | disposition home or self-care (01) ==
LOC: RAD 08:23
PROVIDERS: PCP Nurse Practitioner Family; Visit Provider Nurse Practitioner Family
DX: R10.10 Upper abdominal pain, unspecified (principal)
CPT/HCPCS: 76705

== ENCOUNTER 2023-11-28 10:13 | Outpatient (CLI) | payer OTHER, SELFPAY ==
--- NOTE | 2023-11-28 10:14 | NM_ITS ---
FINAL REPORT CLINICAL HISTORY: right upper quad pain 11:05AM 7.68 MCI TC CHOLETEC 1.7 MCG CCK NO PAIN WITH CCK COMPARISON: None FINDINGS: Sequential anterior projection images of the abdomen were obtained after the intravenous injection of 7.68 mCi technetium 99m Choletec. There is normal uptake of radiotracer by the liver. The bile ducts are visualized by 10 minutes. Gallbladder activity is seen by 15 minutes. Bowel activity is noted by 10 minutes. After 1 hour, 1.7 ?g of CCK was injected intravenously for calculation of gallbladder ejection fraction. The gallbladder ejection fraction is 97%, which is within normal limits. IMPRESSION: No evidence of cystic duct or bile duct obstruction. Normal gallbladder ejection fraction of 97%. Reviewed, Interpreted and Dictated by Yunier Poole III, MD Transcribed by Landy Rao Authenticated and . [facility]
[2023-11-28] MEDS: ISOTOPE CHOLETECH;1 DOSE (UP TO 15 MCI) IV (12:20)
[2023-11-28] MEDS: SINCALIDE 1.7 MCG in 0.9 % SODIUM CHLORIDE 50 ML 100 MCG IV (12:20)
[2023-11-28] MEDS: SODIUM CHLORIDE 0.9% 10ML SYR (RAD ONLY) 10 ML IV (12:20)
== END 2023-11-28 23:59 | disposition home or self-care (01) ==
LOC: RAD 10:14
PROVIDERS: PCP Nurse Practitioner Family; Visit Provider Surgery
DX: R10.11 Right upper quadrant pain (principal)
CPT/HCPCS: 78227; A9537; J2805

== ENCOUNTER 2024-12-17 08:39 | Outpatient (CLI) | payer MEDICAID, SELFPAY ==
--- OUTSIDE RECORDS SUMMARY | 2024-06-29 17:30 | XMS_ITS ---
Author Organization [facility] Address [address] [place] [address] Care Team Providers Care Machine Operator Picker Name Role Phone Saeed Evangelista Primary Care Provider [phone] Saeed Evangelista Unavailable Unavailable Migration, Provider Unavailable Unavailable Allergies Allergen (clinical drug ingredient) Drug/Non Drug Allergy documented on EMR Reaction Allergy Type Onset Date Status MYCINS (uncoded) Unknown Allergy Act scott REASON [facility] VISIT [facility] Conversion Encounter Medications Medication SIG (Take, Route, Frequency, Duration) Notes Start Date End Date Status Atorvastatin Calcium 40 MG 1 tab(s) orally once a day; Duration: 90 days Active Omeprazole 20 MG 1 cap(s) orally once a day; Duration: 30 days 10/26/2023 Active Escitalopram Oxalate 10 MG 1 tab(s) orally once a day; Duration: 90 days Active hydroCHLOROthiazide 25 MG 1 tab(s) orall y once a day in the AM; Duration: 90 days Active ALPRAZolam 0.5 MG 1 tab(s) orally once a day as needed for anxiety; Duration: 90 days 06/18/2024 Active amLODIPine Besylate 10 MG 1 tab(s) orall y once a day; Duration: 90 days Active Potassium Chloride ER 10 MEQ 1 cap(s) orally once a day; Duration: 90 days Active Diclofenac Sodium 75 MG 1 tab(s) orally 2 times a day; Duration: 30 days Active Loratadine 10 MG 1 tab(s) orally once a day Active Euthyrox 125 MCG (0.125 MG) 1 TAB(S) ORALLY ONCE A DAY; Duration: 90 DAYS *Please review and pick correct strength-formulat ion from [employer] options. If intended option is not shown, discontinue and re-order from Quick Search* Active Encounters Encounter Location Date Provider Diagnosis [facility] [address] [facility] [address] [place] [address] 06/29/2024 Provider Migration Upper abdominal pain R10.10 Assessments Encounter Date Diagnosis (ICD Code) Assessment Notes Treatment Notes Treatment Clinical Notes Section Notes 06/29/2024 Upper abdominal pain (ICD-10 - R10.10) Plan Of Treatment Medication Medication Name Sig Start Date Stop Date Notes Atorvastatin Calcium 40 MG 1 tab(s) oral ly once a day; Duration: 90 days Omeprazole 20 MG 1 cap(s) orally once a day; Duration: 30 days 10/26/2023 Escitalopram Oxalate 10 MG 1 tab(s) oral ly once a day; Duration: 90 days hydroCHLOROthiazide 25 MG 1 tab(s) orall y once a day in the AM; Duration: 90 days ALPRAZolam 0.5 MG 1 tab(s) orally once a day as needed for anxiety; Duration: 90 days 06/18/2024 amLODIPine Besylate 10 MG 1 tab(s) orall y once a day; Duration: 90 days Potassium Chloride ER 10 MEQ 1 cap(s) or ally once a day; Duration: 90 days Euthyrox 125 MCG (0.125 MG) 1 TAB(S) ORA LLY ONCE A DAY; Duration: 90 DAYS *Please review and pick correct strength-formulation from [employer] options. If intended option is not shown, discontinue and re-order from Quick Search* Next Appt Details Provider Name:Awa Pantoja ce, 01/20/2025 10:15:00 AM, [address] [facility], [address], [place], [address], Progress Notes * Conrad BETANCOURTB:1975 (49 yo F)Acc No.[id number]:06/29/2024 Patient: Cristiana ROSS Provider: Tara ferguson Migration :1975 A ge:48 Y S ex:Female Date:06/29/2024 Address:[address], [place], [id number] Pcp:Saeed Evangelista Subjective: * Chief Complaints: * [facility] . [facility] * Medical History: * Medications: T aking Loratadine 10 MG Tablet 1 tab(s) orally once a day , Taking Diclofenac Sodium 75 MG Tablet Delayed Release 1 tab(s) orally 2 times a day , Taking hydroCHLOROthiazide 25 MG Tablet 1 tab(s) orally once a day in the AM * Allergies: M YCINS. Objective: * Vitals: Assessment: * Assessment: 1. U pper abdominal pain - R10.10 (Primary) Plan: * Treatment: 2. O thers Refill Escitalopram Oxalate Tablet, 10 MG, 1 tab(s), orally, once a day, 90 days, 90 Tablet, Refills 1; S tart Atorvastatin Calcium Tablet, 40 MG, 1 tab(s), orally, once a day, 90 days, 90 Tablet, Refills 2; R efill Euthyrox TABLET, 125 MCG (0.125 MG), 1 TAB(S), ORALLY, ONCE A DAY, 90 DAYS, 90, Refills 0, Notes to Pharmacist: *Please review and pick correct strength-formulation from [facility] options. If intended option is not shown, discontinue and re-order from Quick Search*; R efill amLODIPine Besylate Tablet, 10 MG, 1 tab(s), orally, once a day, 90 days, 90, Refills 0; R efill hydroCHLOROthiazide Tablet, 25 MG, 1 tab(s), orally, once a day in the AM, 90 days, 90, Refills 0; R efill ALPRAZolam Tablet, 0.5 MG, 1 tab(s), orally, once a day as needed for anxiety, 90 days, 90, Refills 1; R efill Potassium Chloride ER Capsule Extended Release, 10 MEQ, 1 cap(s), orally, once a day, 90 days, 90 Capsule, Refills 1. * * Electronic signature of Prov ider Migration on 12/17/2024 at 09:01 AM EDT Sign off status: Pending * Provider: Tara ferguson Migration Date: 0 06/29/2024 Generated for Vianey grullon/Jalen/Magdaitting on: 0 12/17/2024 09:01 AM EDT
--- OUTSIDE RECORDS SUMMARY | 2024-12-09 06:30 | XMS_ITS ---
Author Organization [facility] Address [address] [place] [address] Care Team Providers Care Raw Scales Operator Name Role Phone Saeed Evangelista Primary Care Provider Saeed Evangelista Unavailable Unavailable Awa Benites Unavailable [phone] Allergies Allergen (clinical drug ingredient) Drug/Non Drug Allergy documented on EMR Reaction Allergy Type Onset Date Status MYCINS (uncoded) Unknown Allergy Act scott Reason For Referral Reason TV US Diagnosis 1 Lower abdominal pain (R10.30) Referral Organization [facility] Referring Provider First Name Awa Referring Provider Last Name Delmis Referring Provider Speciality Family [facility] General Notes Mauricio Charles 03:24:38 PM > faxed and they will call pt Referral Priority Routine REASON FOR VISIT F/U, states that she lifted her mom and pulled something in her back, having back spasms, still having ovarian pain, hot flashes, severe mood swings Medications Medication SIG (Take, Route, Frequency, Duration) Notes Start Date End Date Status ALPRAZolam 0.5 MG 1 tab(s) orally once a day as needed for anxiety; Duration: 90 days 11/21/2024 Active Diclofenac Sodium 75 MG 1 tab(s) orally 2 times a day; Duration: 90 days Active Euthyrox 125 MCG (0.125 MG) 1 TAB(S) ORA LLY ONCE A DAY; Duration: 90 days Active Escitalopram Oxalate 20 MG 1 tablet Oral ly Once a day; Duration: 90 days 08/15/2024 Active Flonase Allergy Relief 50 MCG/ACT 1 spray in each nostril Nasally Twice a day; Duration: 30 days prn 08/15/2024 Active Atorvastatin Calcium 40 MG 1 tab(s) oral ly once a day; Duration: 90 days Active Loratadine 10 MG 1 tab(s) orally once a day; Duration: 90 days Active hydroCHLOROthiazide 25 MG 1 tab(s) orall y once a day in the AM; Duration: 90 days Active amLODIPine Besylate 10 MG 1 tab(s) orall y once a day; Duration: 90 days Active Potassium Chloride ER 10 MEQ 1 cap(s) or ally once a day; Duration: 90 days Active Methocarbamol 500 MG 1 tablet Orally jazmine ry 8 hours as needed for spasms; Duration: 10 days 12/09/2024 Active Wellbutrin XL 150 MG 1 tablet in the morning Orally Once a day; Duration: 30 days 12/09/2024 Active Social History Tobacco Use: Social History Observation Description Date Details (start date - stop date) Former Smoker NA - NA Tobacco Control (Standard) Question Answer Notes Tobacco use: Former smoker How long has it been since you last smoked? 6-12 months Problems Problem Type SNOMED Code ICD Code Onset Dates Problem Status W/U Status Risk Notes Problem Female urinary stress incontinence (71711604) ROULA (stress urinary incontinence, female) (N39.3) Active confirmed Problem Mixed anxiety and depressive disorder (223281154) Depression with anxiety (F41.8) Active confirmed Vital Signs Temperature 97.8 degrees Fahrenheit 12/10/19 25 Heart Rate 108 /min 12/09/2024 Blood pressure systolic 104 mm Hg 12/10/19 25 Blood pressure diastolic 78 mm Hg 025 Height 63 in 12/09/2024 Weight 187.4 lbs 12/09/2024 BMI 33.19 kg/m2 12/09/2024 Encounters Encounter Location Date Provider Diagnosis [facility] [address] [place] [address] 12/09/2024 Awa Benites Lower abdominal pain R10.30 ; ROULA (stress urinary incontinence, female) N39.3 ; Back spasm M62.830 and Depression with anxiety F41.8 Assessments Encounter Date Diagnosis (ICD Code) Assessment Notes Treatment Notes Treatment Clinical Notes Section Notes 12/09/2024 Lower abdominal pain (ICD-10 - R10.30) 12/09/2024 ROULA (stress urinary incontinence, female) (ICD-10 - N39.3) weight loss and pelvic strengthening as well as [employer] FU encouraged...will complete documentation for assistance with incontinence supplies 12/09/2024 Back spasm (ICD-10 - M62.830) 12/09/2024 Depression with anxiety (ICD-10 - F41.8) Plan Of Treatment Medication Medication Name Sig Start Date Stop Date Notes Methocarbamol 500 MG 1 tablet Orally jazmine ry 8 hours as needed for spasms; Duration: 10 days 12/09/2024 Wellbutrin XL 150 MG 1 tablet in the mor hina Orally Once a day; Duration: 30 days 12/09/2024 Pending Test Test Name Order Date Ultrasound : Pelvis, Transvaginal 2024 Referrals Referral Date Details 12/09/2024 12/09/2024, TV US Next Appt Details Follow Up: 6 Weeks, Reason: Provider Name:Awa Pantoja ce, 01/20/2025 10:15:00 AM, [address], [address], [place], [address], Progress Notes * Conrad BETANCOURTB:1975 (49 yo F)Acc No.[id number]:12/09/2024 Progress Notes Patient: Cristiana ROSS Provider: BETH Pickens :1975 A ge:49 Y S ex:Female Date:12/09/2024 Address:[address] [place], [place] [address] [place], [id number] Pcp:Saeed Evangelista Subjective: * Chief Complaints: * 1 . F/U. 2. States that she lifted her mom and pulled something in her back, having back spasms. 3. Still having ovarian pain, hot flashes, severe mood swings. * HPI: g en: 49-year-old female presents today for chronic disease follow-up. She reports continued significant stressors, caring for her mother and has to lift her at times. RIGHT upper to mid back pain and a/w spasms. Flare up started 3-4 days ago. She is taking her medications consistently with the exception of her atorvastatin which she has been out of. She was without insurance for a couple of months. Had to quit her job due to caring for her mom full-time. She is taking her Lexapro every day and alprazolam as needed, typically just once per day but does have days of times where she does not get involved. No longer using CPAP, did not tolerate several different masks, settings, etc. still refraining from tobacco use, this has been almost a year. No respiratory symptoms. Will having some issues with chronic back pain but tolerable with diclofenac. No knee pain issues recently. She did have an episode of pelvic cramping consistent with menstrual cramps 2 to 3 weeks ago. Associated with some heaviness in her vaginal area but never had any actual bleeding. Her last menstrual cycle was about 3 years ago. Bilat lower abd pain, feels like this is in her ovarian region. Lots of mood swings. Not sleeping well. * ROS: R ESPIRATORY: no S hortness of breath. n o C ough. ? C ARDIOLOGY: no C hest pain. C ONSTITUTIONAL: no L oss of appetite. n o F ever. n o W eakness. D ERMATOLOGY: no R hannah. G ASTROENTEROLOGY: no A bdominal pain. U ROLOGY: no D ifficulty urinating. n o B lood in urine. F requent urination yes. U rinary incontinence yes, s tress, worse since lifting her mother, sometimes small amount and sometimes large. incontinence pads seem ineffective and move around when she is working, prefers briefs. * Medical History: H TN, Hypothyroidism, Tobacco use, HLD, Gestational Diabetes, Vit D deficiency, VIOLA - CPAP started June 2023, Colonoscopy 2023. * Surgical History: h ernia repair 2004, kidney stones 2017, Abcess- I & D Left groin 03/2021. * Hospitalization/Major Diagno stic Procedure: k idney stones 2017, [employer]- Abcess 03/2021. * Family History: F ather: , Lung cancer. M other: alive, gallbladder issues, fibromyalgia, dementia, diagnosed with Hypertension, Diabetes. P aternal Grand Father: . P aternal Grand Mother: alive. M aternal Grand Father: . M aternal Grand Mother: . M aternal uncle: alive. M aternal aunt: alive. Veronica chin: alive. 2 daughter(s) . . * Social History: R ecreational drug use: no. Exercise: no. Home smoke detector use: yes. Caffeine: yes, occasional. Living Will: No. Alcohol: socially. Sexually active: yes. Travel outside [place]: no. 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 Tobacco Control (Standard) T obacco use: F ormer smoker, H ow long has it been since you last smoked? 6 -12 months. * Medications: T aking Loratadine 10 MG Tablet 1 tab(s) orally once a day , Taking Atorvastatin Calcium 40 MG Tablet 1 tab(s) orally once a day , Taking amLODIPine Besylate 10 MG Tablet 1 tab(s) orally once a day , Taking hydroCHLOROthiazide 25 MG Tablet 1 tab(s) orally once a day in the AM , Taking Potassium Chloride ER 10 MEQ Capsule Extended Release 1 cap(s) orally once a day , Taking Euthyrox 125 MCG (0.125 MG) TABLET 1 TAB(S) ORALLY ONCE A DAY , Taking Flonase Allergy Relief 50 MCG/ACT Suspension 1 spray in each nostril Nasally Twice a day , Notes to Pharmacist: prn, Taking Escitalopram Oxalate 20 MG Tablet 1 tablet Orally Once a day , Taking Diclofenac Sodium 75 MG Tablet Delayed Release 1 tab(s) orally 2 times a day , Taking ALPRAZolam 0.5 MG Tablet 1 tab(s) orally once a day as needed for anxiety , Medication List reviewed and reconciled with the patient * Allergies: M YCINS. Objective: * Vitals: N urse: jl, Pain: 6-back, Temp: 97.8, RR: 18, HR: 108, BP: 104/78, Ht: 63, Wt: 187.4, BMI:33.19. * Examination: G eneral Examination: General P leasant and Cooperative, NAD on RA,. Heart: R egular Rate and Rhythm, no murmur, rubs or gallops. Lungs: c lear to auscultation,. Abdomen: s oft, NT/ND, BS present, no CVA tenderness,. Skin: w ithout acute rashes. Peripheral pulses: n ormal (2+) bilaterally. Back: t gold right mid back just beneath the scapula, no midline tenderness, normal ROM. Extremities: n o clubbing, no edema,. neck s upple,, no thyromegaly,, no lymphadenopathy,. Psych N ormal Mood/Affect. Assessment: * Assessment: 1. L ower abdominal pain - R10.30 (Primary) 2 . S UI (stress urinary incontinence, female) - N39.3 3 . B ack spasm - M62.830 4 . D epression with anxiety - F41.8 Plan: * Treatment: ? Referral To: ?Reason:TV US 2.?ROULA (stress urinary incontinence, female)? Clinical Notes: weight loss and pelvic strengthening as well as [employer] FU encouraged...will complete documentation for assistance with incontinence supplies??3.?Back spasm? Start Methocarbamol Tablet, 500 MG, 1 tablet, Orally, every 8 hours as needed for spasms, 10 days, 30, Refills 1.??4.?Depression with anxiety? Start Wellbutrin XL Tablet Extended Release 24 Hour, 150 MG, 1 tablet in the morning, Orally, Once a day, 30 days, 30, Refills 1.?? * Follow Up: 6 Weeks * * Sign off status: Completed true * Provider: BETH Pickens Date: 12/09/2024 Generated for Vianey grullon/Jalen/Magdaitting on: 12/17/2024 09:01 AM EDT History and Physical Notes * Examination Category Sub-Category Detail Notes Category Not es General Examination Heart: Regular Rate and Rhythm, no murmur, rubs or gallops Lungs: clear to auscultatio n, Abdomen: soft, NT/ND, BS pres ent, no CVA tenderness, Extremities: no clubbing, no claudia a, Skin: without acute rashes Peripheral pulses: normal (2+) bilatera lly Back: tender right mid ghazala k just beneath the scapula, no midline tenderness, normal ROM neck supple,, no thyromeg chris,, no lymphadenopathy, General Pleasant and Coopera tive, NAD on RA, Psych Normal Mood/Affect Consultation Request Notes Referral Date Referring Provider Referred Provider Not es 12/09/2024 Awa Benites , TV US
--- NOTE | 2024-12-17 08:42 | US_ITS ---
PROCEDURE: US TRANSVAGINAL CLINICAL INDICATION: ABDOMINAL PAIN COMPARISON: CT CT PELVIS W CON from 03/31/2021 FINDINGS: Transvaginal sonographic images of the pelvis were obtained. UTERUS: 6.1cm x 3.9 cmx 2.6 cm anteverted with a combined endometrial thickness of 2.7mm. There is a 0.6 cm nabothian cyst in the cervix. LEFT OVARY: 2.1cmx1.6 cmx1.5cm with a volume of 2.6ml. RIGHT OVARY: 1.7 cmx 1.7 cm x1.7 cm with a volume of 2.5ml. Both ovaries are seen and appear normal. Doppler flow to both ovaries is decreased. There is no fluid in the cul-de-sac. IMPRESSION: 1. Anteverted uterus normal in shape and small in size. The endometrium is thin. 2. Both ovaries are seen and appear atrophic. This likely accounts for the decreased vascular flow. 3. No fluid in the cul-de-sac. Dictated by: Taj Sullivan MD 12/17/2024 17:07 Taj Sullivan MD in OV 12/17/2024 17:07
--- OUTSIDE RECORDS SUMMARY | 2024-12-17 09:01 | XMS_ITS | Encounter Summary ---
Author Organization [facility] Address [address] [id number] Care Team Providers Care Catering Manager Name Role Phone Unavailable Primary Care Provider Unavailabl e Reason for Referral * Consultation (Routine) - Authorized Specialty Diagnoses / Procedures Referred By Contac t Referred To Contact Dentist / Pain Medicine Diagnoses Obstructive sleep apnea (adult) (pediatric) Lona Ahn MD [address] [facility] [address] [place] [address] Phone: tel: fax: Sakina Carlisle, DDS [address] [facility] [address] [place] [address] Phone: tel: fax: Referral ID Status Reason Start Date Expiration Date V isits Requested Visits Authorized [id number] Authorized 10/26/2023 04/26/2025 1 1 Encounter Details Date Type Department Care Team (Late st Contact Info) Description 10/26/2023 Community Orders Community Practice [address] [place] [address] Lona Ahn MD [address] [facility] [address] [place] [id number] Obstructive sleep apnea (adult) (pediatric) (Primary Dx) Social History Tobacco Use Types Packs/Day Years Used Date Smoking Tobacco: Never Assessed Comments Unknown Sex and Gender Information Value Date Recorded Sex Assigned at Not on file Legal Sex Female 6:51 PM EDT Gender Identity Not on file Sexual Orientation Not on file documented as of this encounter Plan of Treatment Scheduled Referrals Name Type Priority Associated Diagnoses Order Schedule Ambulatory Referral to Orofacial Pain Outpatient Referral Routine Obstructive sleep apnea (adult) (pediatric) Expected: 10/26/2023 (Approximate), Expires: 04/27/2025 documented as of this encounter Visit Diagnoses Diagnosis Obstructive sleep apnea (adult) (pediatric)- Primary documented in this encounter
--- OUTSIDE RECORDS SUMMARY | 2024-12-17 09:02 | XMS_ITS | Clinical Summary ---
Author Organization Healthcare Address [address] [place] [address] Care Team Providers Care Boom Stick Man Name Role Phone Unavailable Primary Care Provider Unavailabl e Social History Tobacco Use Types Packs/Day Years Used Date Smoking Tobacco: Never Assessed Comments Unknown Sex and Gender Information Value Date Recorded Sex Assigned at Not on file Legal Sex Female 6:51 PM EDT Gender Identity Not on file Sexual Orientation Not on file Plan of Treatment Not on file
--- OUTSIDE RECORDS SUMMARY | 2024-12-17 09:02 | XMS_ITS | Patient Health Record ---
Author Organization [facility] Address [address] [place] [address] Care Team Providers Care Legal Internship Name Role Phone Saeed Evangelista Primary Care Provider [phone] Saeed Evaneglista Unavailable Unavailable Awa Benites Unavailable [phone] Migration, Provider Unavailable Unavailable Allergies Allergen (clinical drug ingredient) Drug/Non Drug Allergy documented on EMR Reaction Allergy Type Onset Date Status MYCINS (uncoded) Unknown Allergy Act scott Results Component Value Reference Range Notes LIPID PANEL, STANDARD (7600) Reviewed date:08/20/2024 09:30:49 AM Interpretation: Performing Lab:[facility], [facility] [address], [facility]qncJN[address] [place] Notes/Report: NON-FASTING; NON-FASTING; NON-FASTING; NON-FASTING; NON-FAST FASTING: YES FASTING:YES CHOLESTEROL, TOTAL 338 <200 mg/dL HDL CHOLESTEROL 41 > OR = 50 mg/dL TRIGLYCERIDES 325 <150 mg/dL If a non-fasting specimen was collected, consider repeat triglyceride testing on a fasting specimen if clinically indicated. Kaylie et al. J. of Clin. Lipidol. 2015;9:129-169. LDL-CHOLESTEROL 242 LDL-C levels > or = 190 mg/dL may indicate familial hypercholesterolemia (FH). Clinical assessment and measurement of blood lipid levels should be considered for all first degree relatives of patients with an FH diagnosis. LDL Cholesterol (LDL-C) levels > or = 300 mg/dL may indicate homozygous familial hypercholesterolemia (HoFH). Untreated, these extremely high LDL-C levels can result in premature CV events and mortality. Patients should be identified early and provided appropriate interventions to reduce the cumulative LDL-C burden from . For questions about testing for familial hypercholesterolemia, please call [facility] Client Services at [phone]. Kaylie Olivera, et al. J National Lipid Association Recommendations for Patient-Centered Management of Dyslipidemia: Part 1 Journal of Clinical Lipidology 2015;9(2), 129-169. Lisa Jimenes et al. (2014). Homozygous familial hypercholesterolaemia: new insights and guidance for clinicians to improve detection and clinical management. Heart Journal, 35(32), 9457-9848. Reference range: <100 Desirable range <100 mg/dL for primary prevention; <70 mg/dL for patients with CHD or diabetic patients with > or = 2 CHD risk factors. LDL-C is now calculated using the Guido-Srinivasan calculation, which is a validated novel method providing better accuracy than the Friedewald equation in the estimation of LDL-C. Guido SS et al. ROBBIE. 2013;310(19): 7381-4514 (http://education.[employer].com/faq/LMH750) CHOL/HDLC RATIO 8.2 <5.0 (calc) NON HDL CHOLESTEROL 297 <130 mg/dL (calc) Non-HDL level > or = 220 is very high and may indicate genetic familial hypercholesterolemia (FH). Clinical assessment and measurement of blood lipid levels should be considered for all first-degree relatives of patients with an FH diagnosis. For patients with diabetes plus 1 major ASCVD risk factor, treating to a non-HDL-C goal of <100 mg/dL (LDL-C of <70 mg/dL) is considered a therapeutic option. COMPREHENSIVE METABOLIC ANTHONY Mann (66540) Reviewed date:08/20/2024 09:30:49 AM Interpretation: Performing Lab:[facility] [address] [place] Notes/Report: NON-FASTING; NON-FASTING; NON-FASTING; NON-FASTING; NON-FAST FASTING:YES FASTING: YES GLUCOSE 88 65-99 mg/dL Fasting reference interval UREA NITROGEN (BUN) 10 7-25 mg/dL CREATININE 0.73 0.50-0.99 mg/dL EGFR 101 > OR = 60 mL/min/1.73m2 BUN/CREATININE RATIO SEE NOTE: 6-22 (calc) Not Reported: BUN and Creatinine are within reference range. SODIUM 138 135-146 mmol/L POTASSIUM 3.4 3.5-5.3 mmol/L CHLORIDE 100 98-110 mmol/L CARBON DIOXIDE 27 20-32 mmol/L CALCIUM 9.4 8.6-10.2 mg/dL PROTEIN, TOTAL 7.5 6.1-8.1 g/dL ALBUMIN 4.3 3.6-5.1 g/dL GLOBULIN 3.2 1.9-3.7 g/dL (calc) ALBUMIN/GLOBULIN RATIO 1.3 1.0-2.5 (calc) BILIRUBIN, TOTAL 0.4 0.2-1.2 mg/dL ALKALINE PHOSPHATASE 120 31-125 U/L AST 16 10-35 U/L ALT 18 6-29 U/L CBC (INCLUDES DIFF/PLT) (639 9) Reviewed date:08/20/2024 09:30:49 AM Interpretation: Performing Lab:CB, [facility], [facility] CenterAhzqVR[address] [place] Notes/Report: NON-FASTING; NON-FASTING; NON-FASTING; NON-FASTING; NON-FAST FASTING:YES FASTING: YES WHITE BLOOD CELL COUNT 10.3 3.8-10.8 Thousand/ uL RED BLOOD CELL COUNT 5.37 3.80-5.10 Million/uL HEMOGLOBIN 15.9 11.7-15.5 g/dL HEMATOCRIT 49.6 35.0-45.0 % MCV 92.4 80.0-100.0 fL MCH 29.6 27.0-33.0 pg MCHC 32.1 32.0-36.0 g/dL For adults, a slight decrease in the calculated MCHC value (in the range of 30 to 32 g/dL) is most likely not clinically significant; however, it should be interpreted with caution in correlation with other red cell parameters and the patient's clinical condition. RDW 14.8 11.0-15.0 % PLATELET COUNT 306 140-400 Thousand/uL MPV 11.0 7.5-12.5 fL ABSOLUTE NEUTROPHILS 6644 5512-1626 cells/uL ABSOLUTE LYMPHOCYTES 2925 850-3900 cells/uL ABSOLUTE MONOCYTES 433 200-950 cells/uL ABSOLUTE EOSINOPHILS 134 15-500 cells/uL ABSOLUTE BASOPHILS 165 0-200 cells/uL NEUTROPHILS 64.5 LYMPHOCYTES 28.4 MONOCYTES 4.2 EOSINOPHILS 1.3 BASOPHILS 1.6 HEMOGLOBIN A1c (496) Reviewed date:08/20/2024 09:30:49 AM Interpretation: Performing Lab:[facility] [facility], [place] EempPV[address] [place] Notes/Report: NON-FASTING; NON-FASTING; NON-FASTING; NON-FASTING; NON-FAST FASTING:YES FASTING: YES HEMOGLOBIN A1c 6.3 <5.7 % For someone without known diabetes, a hemoglobin A1c value between 5.7% and 6.4% is consistent with prediabetes and should be confirmed with a follow-up test. For someone with known diabetes, a value <7% indicates that their diabetes is well controlled. A1c targets should be individualized based on duration of diabetes, age, comorbid conditions, and other considerations. This assay result is consistent with an increased risk of diabetes. Currently, no consensus exists regarding use of hemoglobin A1c for diagnosis of diabetes for children. TSH W/REFLEX TO FT4 (06582) Reviewed date:08/20/2024 09:30:49 AM Interpretation: Performing Lab:[facility], [place] AsyxRS[address] [place] Notes/Report: NON-FASTING; NON-FASTING; NON-FASTING; NON-FASTING; NON-FAST FASTING:YES FASTING: YES TSH W/REFLEX TO FT4 1.89 Reference Range > or = 20 Years 0.40-4.50 Ranges First trimester 0.26-2.66 Second trimester 0.55-2.73 Third trimester 0.43-2.91 VITAMIN D,25-OH,TOTAL,IA (17 306) Reviewed date:08/20/2024 09:30:49 AM Interpretation: Performing Lab:[facility], [place] RficSS[address] [place] Notes/Report: NON-FASTING; NON-FASTING; NON-FASTING; NON-FASTING; NON-FAST FASTING:YES FASTING: YES VITAMIN D,25-OH,TOTAL,IA 29 30-100 ng/mL Vitamin D Status 25-OH Vitamin D: Deficiency: <20 ng/mL Insufficiency: 20 - 29 ng/mL Optimal: > or = 30 ng/mL For 25-OH Vitamin D testing on patients on D2-supplementation and patients for whom quantitation of D2 and D3 fractions is required, the QuestAssureD(TM) 25-OH VIT D, (D2,D3), LC/MS/MS is recommended: order code 13164 (patients >2yrs). See Note 1 Note 1 For additional information, please refer to http://education.Uguru.com/faq/QRT377 (This link is being provided for informational/ educational purposes only.) Reason For Referral Reason TV US Diagnosis 1 Lower abdominal pain (R10.30) Referral Organization [facility] Referring Provider First Name Awa Referring Provider Last Name Delmis Referring Provider Speciality [facility] General Notes Mauricio Charles 03:24:38 PM > faxed and they will call pt Referral Priority Routine Medications Medication SIG (Take, Route, Frequency, Duration) Notes Start Date End Date Status ALPRAZolam 0.5 MG 1 tab(s) orally once a day as needed for anxiety; Duration: 90 days 11/21/2024 Active Diclofenac Sodium 75 MG 1 tab(s) orally 2 times a day; Duration: 90 days Active Methocarbamol 500 MG 1 tablet Orally jazmine ry 8 hours as needed for spasms; Duration: 10 days 12/09/2024 Active Wellbutrin XL 150 MG 1 tablet in the morning Orally Once a day; Duration: 30 days 12/09/2024 Active Atorvastatin Calcium 40 MG 1 tab(s) oral ly once a day; Duration: 90 days Active Loratadine 10 MG 1 tab(s) orally once a day; Duration: 90 days Active hydroCHLOROthiazide 25 MG 1 tab(s) orall y once a day in the AM; Duration: 90 days Active amLODIPine Besylate 10 MG 1 tab(s) orall y once a day; Duration: 90 days Active Euthyrox 125 MCG (0.125 MG) 1 TAB(S) ORA LLY ONCE A DAY; Duration: 90 days Active Potassium Chloride ER 10 MEQ 1 cap(s) or ally once a day; Duration: 90 days Active Escitalopram Oxalate 20 MG 1 tablet Oral ly Once a day; Duration: 90 days 08/15/2024 Active Flonase Allergy Relief 50 MCG/ACT 1 spray in each nostril Nasally Twice a day; Duration: 30 days prn 08/15/2024 Active Immunizations Vaccine Route Administration Date Status Eleuterio brian Pneumovax 23 IM Intramuscular 10/16/2018 Administered Social History Tobacco Use: Social History Observation Description Date Details (start date - stop date) Former Smoker NA - NA Tobacco Control (Standard) Question Answer Notes Tobacco use: Former smoker How long has it been since you last smoked? 6-12 months Problems Problem Type SNOMED Code ICD Code Onset Dates Problem Status W/U Status Risk Notes Problem Tobacco user (539194576) Nicotine dependence, cigarettes, uncomplicated (F17.210) Active confirmed Problem Essential hypertension (82774218) Essential (primary) hypertension (I10) Active confirmed Problem Sciatica (54057821) Lumbago with sciatica, left side (M54.42) Active confirmed Problem Obese class I (finding) (496571995061143) Obesity (BMI 30.0-34.9) (E66.9) Active confirmed Problem Mixed anxiety and depressive disorder (529144363) Depression with anxiety (F41.8) Active confirmed Problem Hypothyroidism (33523186) Hypothyroidism (acquired) (E03.9) Active confirmed Problem Vitamin D deficiency (37022708) Vitamin D deficiency (E55.9) Active confirmed Problem Sialadenitis (21231733) Sialadenitis (K11.20) Active confirmed Problem Hyperglycemia (44155449) Hyperglycemia (R73.9) Active confirmed Problem Essential hypertension (21442570) Essential hypertension (I10) Active confirmed Problem Adjustment disorder with mixed emotional features (01168086) Situational mixed anxiety and depressive disorder (F43.23) Active confirmed Problem Chronic pain (40123756) Other chronic pain (G89.29) Active confirmed Problem Obstructive sleep apnea syndrome (37738800) VIOLA (obstructive sleep apnea) (G47.33) Active confirmed Problem Female urinary stres s incontinence (89322365) ROULA (stress urinary incontinence, female) (N39.3) Active confirmed Problem Tobacco use (569625374) Tobacco use disorder (F17.200) Active confirmed Problem Pure hypercholesterolemia (962231139) Pure hypercholesterolemia (E78.00) Active confirmed Problem Prediabetes (331475738) Pre-diabetes (R73.03) Active confirmed Problem Skin sensation disturbance (55747341) Paresthesia of hand, bilateral (R20.2) Active confirmed Problem Seasonal allergic rhinitis (120468494) Acute seasonal allergic rhinitis (J30.2) Active confirmed Vital Signs Heart Rate 108 /min 12/09/2024 Temperature 97.8 degrees Fahrenheit 12/09/2024 Blood pressure diastolic 78 mm Hg 12/09/2024 Height 63 in 12/09/2024 Blood pressure systolic 104 mm Hg 12/09/2024 Weight 187.4 lbs 12/09/2024 BMI 33.19 kg/m2 12/09/2024 Encounters Encounter Location Date Provider Diagnosis [facility] [address] [place] [address] 06/29/2024 Provider Migration Upper abdominal pain R10.10 [facility] [address] [place] [address] 08/15/2024 [facility] Routine medical exam Z00.00 ; VIOLA (obstructive sleep apnea) G47.33 ; Essential hypertension I10 ; Hypothyroidism (acquired) E03.9 ; Pre-diabetes R73.03 ; Situational mixed anxiety and depressive disorder F43.23 ; Vitamin D deficiency E55.9 ; Lumbar back pain M54.50 ; Acute seasonal allergic rhinitis J30.2 ; Visit for screening mammogram Z12.31 and Pure hypercholesterolemia E78.00 [facility] [address] [place] [address] 12/09/2024 [facility] Lower abdominal pain R10.30 ; ROULA (stress urinary incontinence, female) N39.3 ; Back spasm M62.830 and Depression with anxiety F41.8 [facility] [address] [place], [place] [address] 08/15/2024 Saeed Besson [facility] [address] [place], [place] [address] 03/03/2024 Saeed Besson [facility] [address] [place], [place] [address] 04/09/2024 Awa Delmis [facility] [address] [place] [address] 06/17/2024 Saeed Besson [facility] [address] [place] [address] 06/17/2024 Awa Delmis [facility] [address] [place] [address] 07/30/2024 Saeed Besson [facility] [address] [place] [address] 07/30/2024 Awa Delmis [facility] [address] [place] [address] 08/12/2024 Awa Delmis [facility] [address] [place] [address] 09/09/2024 Awa Delmis Lumbar back pain M54 .50 [facility] [address] [place] [address] 11/21/2024 Saeed Besson Situational mixed an xiety and depressive disorder F43.23 Assessments Encounter Date Diagnosis (ICD Code) Assessment Notes Treatment Notes Treatment Clinical Notes Section Notes 06/29/2024 Upper abdominal pain (ICD-10 - R10.10) 08/15/2024 Routine medical exam (ICD-10 - Z00.00) Well Visit, Ages 18 to 65: Care Instructions material was published 08/15/2024 VIOLA (obstructive sle ep apnea) (ICD-10 - G47.33) no longer using CPAP, monitor symptoms/compli cations 09/09/2024 Lumbar back pain (ICD-10 - M54.50) 11/21/2024 Situational mixed anxiety and depressive disorder (ICD-10 - F43.23) 12/09/2024 Lower abdominal pain (ICD-10 - R10.30) 12/09/2024 ROULA (stress urinary incontinence, female) (ICD-10 - N39.3) weight loss and pelvic strengthening as well as HYPO DIPPER FU encouraged...wi ll complete documentation for assistance with incontinence supplies 12/09/2024 Back spasm (ICD-10 - M62.830) 08/15/2024 Essential hypertensi on (ICD-10 - I10) well controlled on current regimen 08/15/2024 Hypothyroidism (acquired) (ICD-10 - E03.9) continue oral replacement 12/09/2024 Depression with anxi ety (ICD-10 - F41.8) 08/15/2024 Pre-diabetes (ICD-10 - R73.03) 08/15/2024 Situational mixed anxiety and depressive disorder (ICD-10 - F43.23) rec increase lexapro as noted 08/15/2024 Vitamin D deficiency (ICD-10 - E55.9) 08/15/2024 Lumbar back pain (ICD-10 - M54.50) continue NSAIDS PRN 08/15/2024 Acute seasonal aller gic rhinitis (ICD-10 - J30.2) 08/15/2024 Visit for screening mammogram (ICD-10 - Z12.31) 08/15/2024 Pure hypercholesterolemia (ICD-10 - E78.00) Plan Of Treatment Pending Test Test Name Order Date Ultrasound : Pelvis, Transvaginal 2024 Physical Therapy 01/07/2021 Occupational Therapy : Eval & Treatment 01/07/2021 M-Complete Blood Count Auto Diff 021 M-Complete Blood Count Auto Diff 020 M-Comprehensive Metabolic Panel 04/09/19 M-Comprehensive Metabolic Panel 11/21/19 M-Comprehensive Metabolic Panel 07/10/19 M-Hemoglobin A1C 04/09/2020 M-Lipid Panel 07/09/2020 M-Lipid Panel 11/21/2019 M-Lipid Panel 04/09/2020 M-Thyroid Stimulating Hormone 04/09/2020 M-Thyroid Stimulating Hormone 10/16/2018 M-Thyroid Stimulating Hormone 11/21/2019 M-Thyroid Stimulating Hormone 07/09/2020 Mammogram: Screening 08/15/2024 Physical Therapy Eval and Treat 03/16/20 23 Next Appt Details Provider Name:Awa Pantoja ce, 01/20/2025 10:15:00 AM, [address], [place], [address], Insurance Providers Payer Name Payer Address Payer Phone Subscriber Number Group Number Insured Name Patient Relationship to Insured Coverage Start Date Coverage End Date [employer] [place] [employer] [address] [address] [place] [address] [id number] Cristiana Holder Self - patient is the insured Medications Administered Medication Instructions Date of Administration Dosage Notes Dexamethasone 4mg Injection 12/22/2022 4 mg Dexamethasone 4mg Injection 08/15/2024 4 mg Medical (General) History Medical History History ICD Code HTN Hypothyroidism Tobacco use HLD Gestational Diabetes Vit D deficiency VIOLA - CPAP started June 2023 Colonoscopy 2023 Surgical History Surgery Date(Month/Year) hernia repair 2004 kidney stones 2017 Abcess- I & D Left groin 03/2021 Hospitalization History Reason Date(Month/Year) [facility]- Abcess 03/2021 kidney stones 2018
== END 2024-12-17 23:59 | disposition home or self-care (01) ==
LOC: RAD 08:40
PROVIDERS: PCP Nurse Practitioner Family; Visit Provider Nurse Practitioner Family
DX: N85.4 Malposition of uterus (principal); N83.312 Acquired atrophy of left ovary; N83.311 Acquired atrophy of right ovary; R10.30 Lower abdominal pain, unspecified
CPT/HCPCS: 76830